=== PATIENT | male | born 1950 | race Caucasian/White ===

== ENCOUNTER 2017-03-08 19:14 | Inpatient (IN) ==
[2017-03-08] MEDS ORDERED: MORPHINE 2 MG/1 ML SYRINGE IV STA (19:52)
[2017-03-08] MEDS ORDERED: NITROGLYCERIN 2% OINT 1 INCH/GM PACK TOP STA (19:52)
[2017-03-08] MEDS ORDERED: NITROGLYCERIN 2% OINT 1 INCH/GM PACK TOP ONE (20:33)
[2017-03-08] MEDS ORDERED: MORPHINE 2 MG/1 ML SYRINGE ONE (20:33)
--- NOTE | 2017-03-08 20:39 | Emergency Department Note ---
Ameya Choi Brittany, am scribing for, and in the presence of, Jessica Magaña MD 19:59. Gómez Choi Leanne, MD, personally performed the services described in this documentation, ascribed by Sonya Hou in my presence, and it is both accurate and complete . Arrival - Arrival Chief Complaint: Chest Pain Stated Complaint: chest pain ED Nursing Triage Note: chest pain, palpitations, headache. Mode of Arrival: Stretcher Limitations: No Limitations Source: Patient, Significant other, RN Notes Reviewed Time Seen by Provider: 03/08/17 19:39 - History of Present Illness HPI Narrative: Patient is a 66 y/o white male presenting to the ED by EMS from of [place], [place] for further evaluation of Chest Pain and new onset of Atrial Fibrillation. Patient reports that upon waking from a nap around 1300 he felt heart palpitations, which confirms by stating "he came in the living room, told me to feel his chest and boy it was racing." Patient then states he was heading out to get in his truck when he noticed he had grabbed the wrong keys, upon return inside the house to get the correct set of keys his chest pain onset with a severity of 8/10. Patient then proceeded to [facility] for medical attention where he was found to be in Atrial Fibrillation. He was given a sublingual NTG and ASA as well as cardioverted. As of now he is in NSR with a rate of 65 bpm. His chest pain still persists, but now rates pain a 4/10 in severity. He has a family history significant for SD, HTN, and Diabetes Mellitus. Patient denies having any significant heart history other then HTN. Patient has had stress test and cardiac catheterization some years ago, but both were benign. His primary care provider is Dr. Anitra Baltazar of [place], [place]. No other complaint/pain. Onset (ago): hour(s) (6) Consistency: constant Severity scale (1-10): 4 Quality: aching Review of System - Review of System 12 point system: reviewed and no additional remarkable complaints except as stated - Review of System Constitutional: Absent: chills, diaphoresis, fever Eyes: Absent: vision change Head/Ears/Nose/Throat: Absent: nasal drainage, sore throat Respiratory: Absent: respiratory distress Cardiovascular: Present: chest pain, palpitations Gastrointestinal: Absent: abdominal pain, nausea, vomiting, diarrhea, constipation Genitourinary male: Absent: urgency, dysuria, frequency Musculoskeletal: Absent: arm pain, back pain, leg pain, neck pain Skin: Absent: rash Neurological: Absent: headache Psychiatric: Absent: anxiety, depression Hematological/Lymphatic: Absent: easy bleeding, easy bruising Medical,Surgical,& Family Hx - Medical History Endocrine: History of: Diabetes Mellitus (NIDDM) Musculoskeletal: History of: Back/Neck Problems - Surgical History Thoracic Surgeries: Patient denies;: Lobectomy Abdominal Surgeries: Surgical HX of: Cholecystectomy - Social History Smoking Status: Never smoker Frequency of Alcohol Use: None Type of Drug Use: None Exam Vital Signs: Vital Signs Temperature 98.9 F 03/08/17 19:16 Pulse Rate 60 03/08/17 19:26 Respiratory Rate 20 03/08/17 19:27 Blood Pressure 166/82 03/08/17 19:26 O2 Sat by Pulse Oximetry 99 03/08/17 19:26 - General General appearance: alert, in no apparent distress - Head Head exam: Present: atraumatic, normocephalic, normal inspection - Eye Eye exam: Present: normal appearance, PERRL, EOMI - ENT ENT exam: Present: normal exam, normal oropharynx - Neck Neck exam: Present: normal inspection, full ROM, trachea midline - Chest Chest inspection: Present: normal inspection, symmetric chest wall rise - Respiratory Respiratory exam: Present: normal lung sounds bilaterally. Absent: rales, rhonchi, wheezes - Cardiovascular Cardiovascular exam: Present: regular rate, normal rhythm, normal heart sounds. Absent: murmur, rubs, gallop - Abdominal Exam Abdominal exam: Present: soft, normal bowel sounds. Absent: distention, tenderness - Extremities Exam Extremities exam: Present: normal inspection - Back Exam Back exam: Present: normal inspection - Neurological Exam Neurological exam: Present: alert, oriented X3, CN II-XII intact. Absent: motor sensory deficit - Psychiatric Psychiatric exam: Present: normal affect, normal mood - Skin Skin exam: Present: warm, dry, intact, normal color Course Course Narrative: OSH records reviewed. Initial EKG afib with RVR, no prior history. Trop neg. Pt converted with one dose of diltiazem. Pt had improved chest pain but still reporting chest pain. Mother had SD at age 75. He also has risk factors of DM and HTN. Clean cath several years ago performed at [place]. Pt given nitro paste and morphine for pain. Repeat enzymes and admit to hospitalist. Results - EKG EKG results: interpreted by CARLTON MCALLISTER, sinus rhythm, normal axis, normal QRS, normal ST/T Disposition Clinical Impression: Chest pain, Atrial fibrillation with RVR, Diabetes, Hypertension Case discussed with: patient Disposition: Disch/Xfer-[facility]pshort Term Hos Condition: Guarded
[2017-03-08] MEDS ORDERED: MAGNESIUM SULF RIDER 2 GM in PREMIX 1 EACH IV ONE (22:17)
[2017-03-08] MEDS ORDERED: DILTIAZEM 50 MG/10 ML VIAL IV PRN (22:17)
[2017-03-08] MEDS ORDERED: ENOXAPARIN 100 MG/ML SYRINGE SUBCUT SCH (22:17)
[2017-03-08] MEDS ORDERED: GLUCAGON 1 MG VIAL IM PRN ×2 (22:17)
[2017-03-08] MEDS ORDERED: DEXTROSE 50% 25 GM/50 ML VIAL IV PRN ×2 (22:17)
[2017-03-08] MEDS ORDERED: ACETAMINOPHEN 325 MG TABLET PO PRN (22:17)
--- NOTE | 2017-03-08 23:29 | Hospitalist History & Physical ---
Assessment and Plan (1) Atrial fibrillation with RVR Status: Acute Assessment and plan: Rate controlled with 20 mg IV diltiazem 2 IV hydration Replace magnesium Start 60 mg oral diltiazem every 6 hours, as needed IV diltiazem for RVR Monitor on telemetry Start weight-based Lovenox for anticoagulation, discuss oral anticoagulant options with him in the morning Check TSH Current Visit: Yes (2) Hypomagnesemia Status: Acute Assessment and plan: Replace IV Current Visit: Yes (3) Dehydration Status: Acute Assessment and plan: IV fluids, likely secondary to hyperglycemia, may have triggered the atrial fibrillation Current Visit: Yes (4) Chest pain Status: Acute Assessment and plan: Chest tightness at the same time of onset of A. 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 Underwood is a 66 year old male with past history of hypertension, diabetes, GERD, psoriasis the presented with a chief complaint of chest pain. Onset sudden. Duration since noon. Quality tightness in the center of his chest. Associated with palpitations, shortness of breath, lightheadedness, flushing. On arrival to the [facility] he was found to be in atrial fibrillation with RVR. His symptoms significantly improved with diltiazem 20 mg IV 2 and nitroglycerin given at [facility]. He was transferred to [place] for higher level of care. Serial troponins and CK-MB have been negative thus far. Patient has been failing poorly for the last 2 weeks with nonspecific symptoms such as malaise but no specific infectious symptoms or sick contacts. I have reviewed the workup performed in the emergency department including lab and imaging data. I have discussed his case with emergency department providers. Allergies Allergy/AdvReac Type Severity Reaction Status Date / Time methocarbamol [From Robaxin] Allergy RASH Verified 03/08/17 20:35 Medical,Surgical,& Family Hx - Medical History Cardio: History of: Hypertension Endocrine: History of: Diabetes Mellitus (NIDDM) Gastrointestinal: History of: GERD Musculoskeletal: History of: Back/Neck Problems - Surgical History Thoracic Surgeries: Patient denies;: Lobectomy Abdominal Surgeries: Surgical HX of: Cholecystectomy Orthopedic Surgeries: Surgical HX of;: Spinal Surgery - Family History Family History: Reports;: Family Diabetes, Family Heart Disease (Mother of [place]), Family Hypertension - Social History Smoking Status: Former smoker Have you smoked in the last 12 months: No Frequency of Alcohol Use: None Type of Drug Use: None Marital Status: Lives With:: Spouse Functional capacity: independent ambulation Review of systems: - Constitutional Constitutional: Present: Fatigue absent: chills, fever(s), night sweats, weight loss - EENT Eyes: Absent: blurry vision Ears: Absent: decreased hearing, ear pain Nose, mouth and throat: Absent: nasal congestion, sore throat - Cardiovascular Cardiovascular: Present: Chest tightness, much improved, palpitations have resolved - Respiratory Respiratory: Absent: cough, dyspnea, hemoptysis - Gastrointestinal Gastrointestinal: Absent: abdominal pain, constipation, diarrhea, dysphagia, hematemesis, hematochezia, melena, nausea, vomiting - Genitourinary Genitourinary: Absent: difficulty urinating, dysuria, hematuria - Musculoskeletal Musculoskeletal: Absent: arthralgias, joint swelling, myalgias - Neurological Neurological: Present: Severe peripheral nephropathy absent: confusion, dizziness, focal weakness, headache(s), syncope - Psychiatric Psychiatric: Absent: anxiety, depression - Endocrine Endocrine: Absent: cold intolerance, heat intolerance, polydipsia, polyuria - Hematologic/Lymphatic Hematologic/Lymphatic: Absent: easy bleeding, easy bruising, lymphadenopathy Exam - Constitutional Vitals: Period Temp Pulse Resp BP Sys/Heredia Pulse Ox Last 24 Hr 71 20 146/88 99 General appearance: over weight, other (Older white male sitting up on stretcher pleasant and cooperative) Exam: - Eye Eye exam: Present: EOMI. Absent: conjunctival injection, scleral icterus Pupils: Present: JASWANT - ENT ENT exam: Present: normal external ear exam, normal oropharynx - Expanded ENT Exam Mouth exam: Present: Dry - Neck Neck exam: Present: normal inspection. Absent: lymphadenopathy, thyromegaly - Respiratory Respiratory exam: Present: clear to auscultation bilaterally. Absent: accessory muscle use, rales, rhonchi, wheezes - Cardiovascular Cardiovascular exam: Present: regular rate and rhythm. Absent: diastolic murmur , systolic murmur - Expanded Cardiovascular Exam Peripheral pulses: 2+: posterior tibialis (L), posterior tibialis (R) - GI/Abdominal GI/Abdominal exam: Present: normal bowel sounds, soft. Absent: distended, hyperactive bowel sounds, hypoactive bowel sounds, organomegaly, tenderness, rebound - Extremities Exam Extremities exam: Absent: edema - Neurological Exam Neurological exam: Present: alert, oriented X3, CN II-XII intact. Absent: motor sensory deficit - Psychiatric Psychiatric exam: Present: normal affect - Skin Skin exam: Present: warm, dry. Absent: diaphoretic, rash Results - Impressions EKGs and outside hospital reviewed: First EKG A. fib with RVR rate 131. Second EKG atrial flutter with variable 2-3:1 conduction, rate 72. - Diagnostic Findings Procedure: Chest x-ray: report reviewed by me
[2017-03-08] MEDS: oxyCODONE IR 5 MG TABLET PO PRN (23:54)
[2017-03-08] MEDS: GABAPENTIN 300 MG CAPSULE PO SCH (23:54)
[2017-03-08] MEDS: DILTIAZEM 30 MG TABLET PO SCH (23:54)
[2017-03-08] MEDS: SODIUM CHLORIDE 0.9% 1,000 ML IV SCH (23:56)
[2017-03-09] MEDS: INSULIN GLARGINE 100 UNIT/ML SUBCUT SCH ×2 (00:46→21:51)
[2017-03-09] MEDS: INSULIN LISPRO 100 UNIT/ML SUBCUT SCH ×5 (00:48→21:51)
--- NOTE | 2017-03-09 03:26 | EKG Report ---
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
[2017-03-09 04:25] LABS: Basophils % 0.4 % (0.0-0.8); Eosinophils # 0.2 10*3/uL (0.0-0.87); Eosinophils % 1.7 % (0.00-10.9); Hematocrit 39.1 VOL% (42.0-52.0); Hemoglobin 13.8 GM/DL (14.0-18.0); Immature Granulocytes % 0.1 %; Immature Granulocytes Absolute 0.01 #; Lymphocytes # 3.1 10*3/uL (1.4-4.0); Lymphocytes % 34.6 % (21.2-54.2); Mean Corpuscular HGB Conc 35.3 GM/DL (32-36); Mean Corpuscular Hemoglobin 31 PG (27-34); Mean Corpuscular Volume 87.5 FL (87-102); Mean Platelet Volume 12.2 FL (9.6-12.0); Monocytes # 0.8 10*3/uL (0.11-0.8); Monocytes % 9.2 % (1.7-12.7); Neutrophils # 4.8 10*3/uL (1.4-7.4); Platelet Count 184 T/CUMM (130-400); Red Blood Count 4.47 MC/CUMM (3.8-5.5); Red Cell Distribution Width 13.1 % (9.3-17.3)
[2017-03-09 04:52] LABS: Albumin 3.8 G/DL (3.4-5.0); Calcium 8.8 MG/DL (8.5-10.1); Magnesium 2.5 MG/DL (1.8-2.4); Potassium 3.9 MMOL/L (3.5-5.1); Thyroid Stimulating Hormone 11.9 uIU/ml (0.358-3.74); Total Protein 7.1 G/DL (6.4-8.3)
[2017-03-09 06:46] LABS: Eosinophils 4 % (0-10); Hypochromasia Slight; Lymphocytes 33 % (20-55); Platelet Estimate Normal; Segmented Neutrophils 58 % (50-85); Total Cells Counted 100
[2017-03-09] MEDS: DILTIAZEM 30 MG TABLET PO SCH (08:55)
[2017-03-09] MEDS: GABAPENTIN 300 MG CAPSULE PO SCH ×3 (08:55→21:51)
[2017-03-09] MEDS: oxyCODONE IR 5 MG TABLET PO PRN ×2 (08:56→17:03)
--- NOTE | 2017-03-09 09:05 | EKG Report ---
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
--- NOTE | 2017-03-09 09:05 | EKG Report ---
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
[2017-03-09 10:33] LABS: PT Patient Result 11.1 SECS
[2017-03-09] MEDS: ENOXAPARIN 40 MG/0.4 ML SYRINGE SUBCUT SCH (11:26)
[2017-03-09] MEDS: SODIUM CHLORIDE 0.9% 1,000 ML IV SCH (11:28)
--- NOTE | 2017-03-09 11:36 | Hospitalist Progress Note ---
Assessment and Plan - Time spent with patient Time spent with patient: Greater than 30 minutes (38 min total time with greater than 50% of time in discussion with pt, spouse, and RN regarding findings and tx plan) (1) Chest pain Status: Acute Assessment and plan: Suspect demand ischemia that was rate related. Ruled out for AMI Current Visit: Yes (2) Atrial fibrillation with RVR Status: Acute Assessment and plan: Converted to NSR/sinus juice this am. BP stable. Will continue po Cardizem in effort to prevent further RVR during paroxysms of afib. This is new dx for this pt. TSH mildly ELEVATED. Echo pending. Pt has CHADs2 score of 3. Discussed indication as well as risk/benefit of watermelon inspector anticoagulation for stroke prevention. Pt and understand and wish to proceed with anticoagulation. Starting low dose coumadin today with target INR of 2-3. 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 Absent: conjunctival injection, scleral icterus Pupils: Present: JASWANT - ENT ENT exam: Present: normal exam - Neck Neck exam: Present: normal inspection. Absent: lymphadenopathy - Respiratory Respiratory exam: Present: clear to auscultation bilaterally. Absent: rales, rhonchi, wheezes - Cardiovascular Cardiovascular exam: Present: bradycardia. Absent: gallop, rubs - GI/Abdominal GI/Abdominal exam: Present: normal bowel sounds. Absent: distended, guarding, tenderness - Extremities Exam Extremities exam: Present: normal inspection, normal capillary refill - Neurological Exam Neurological exam: Present: alert, oriented X3 - Psychiatric Psychiatric exam: Present: normal affect, normal mood - Skin Skin exam: Present: normal color, warm, dry Results - Labs CBC & BMP: 03/09/17 03:05 03/09/17 03:05
[2017-03-09] MEDS: DILTIAZEM CD 120 MG CAPSULE PO SCH (12:35)
[2017-03-09] MEDS ORDERED: WARFARIN 2.5 MG TABLET PO SCH (18:00)
--- NOTE | 2017-03-09 21:50 | ECHO Report ---
Abilio Underwood Exam Date: 03/09/2017 10:27 Referring Physician: Technologist: Paola Olvera RDCS Age: 66 Ht (in): 73 Wt (lb): 196 Gender: M Exam [facility]: [facility] Echo Indications: Chest pain, unspecified, Essential (primary) hypertension, Shortness of breath, Palpitations, Atrial fibrillation, NIDDM, Dehydration, Hypomagnesemia BP: 124 / 67 HR: 55 Rhythm: Sinus Technical Quality: Technically difficult study IMPRESSIONS Technically difficult study. Left ventricular ejection fraction is estimated at 60 %. Mildly increased left atrial size. Mildly thickened mitral valve with trace mitral regurgitation. Mild aortic valve sclerosis without stenosis. Trace aortic valve regurgitation. Mild tricuspid valve regurgitation. MEASUREMENTS (Male / Female) Normal Values 2D ECHO LV Diastolic Diameter PLAX 5.2 cm 4.2 - 5.9 / 3.9 - 5.3 cm LV Systolic Diameter PLAX 3.3 cm LV Fractional Shortening PLAX 37.3 % IVS Diastolic Thickness 1.0 cm 0.6 - 1.0 / 0.6 - 0.9 cm LVPW Diastolic Thickness 1.0 cm 0.6 - 1.0 / 0.6 - 0.9 cm RV Internal Dim ED PLAX 3.1 cm Aortic Root Diameter 3.4 cm LA Systolic Diameter LX 5.2 cm 3.0 - 4.0 / 2.7 - 3.8 cm DOPPLER TR Peak Velocity 350.0 cm/s TR Peak Gradient 49.0 mmHg FINDINGS Left Ventricle Normal left ventricular cavity size. Normal left ventricular wall thickness. Left ventricular ejection fraction is estimated at 60 %. Right Ventricle The right ventricle is normal in size and function. Right Atrium The right atrium isgrossly normal. Left Atrium Mildly increased left atrial size. Mitral Valve Mildly thickened mitral valve with trace mitral regurgitation. Aortic Valve Mild aortic valve sclerosis without stenosis. Trace aortic valve regurgitation. Tricuspid Valve Morphologically normal tricuspid valve. Mild tricuspid valve regurgitation. Tricuspid regurgitation velocities suggest a PAP of 59 mmHg. Pulmonic Valve Morphologically normal pulmonic valve. Trace pulmonary valve regurgitation. Pericardium Normal pericardium without effusion. Aorta Normal ascending aorta dimension. Dom Alvarez (Electronically Signed) Final Date: 09 Mar 2017 21:49
[2017-03-10] MEDS: oxyCODONE IR 5 MG TABLET PO PRN ×2 (01:57→10:14)
[2017-03-10 05:24] LABS: PT Patient Result 10.9 SECS
[2017-03-10] MEDS: GABAPENTIN 300 MG CAPSULE PO SCH (08:33)
[2017-03-10] MEDS: DILTIAZEM CD 120 MG CAPSULE PO SCH (08:33)
[2017-03-10] MEDS: INSULIN LISPRO 100 UNIT/ML SUBCUT SCH ×2 (08:33→12:57)
[2017-03-10] MEDS: ENOXAPARIN 40 MG/0.4 ML SYRINGE SUBCUT SCH (10:00)
--- NOTE | 2017-03-10 10:40 | Discharge Summary ---
Hospital Course - Hospital Course Hospital Course: 66-year-old male with a history of peripheral neuropathy and diabetes presents to the emergency room with complaints of chest pain. Patient was noted to be in A. fib with rapid ventricular response but quickly converted to sinus rhythm. He was noted to be mildly dehydrated due to hyperglycemia. His blood sugars are not well controlled and he is currently on glipizide or Metformin. His hemoglobin A1c was 9.8 but I doubt he will be compliant with insulin. He was started on gabapentin in addition to his narcotics for his peripheral neuropathy. He needs to follow-up with his primary care doctor and have a in-depth conversation about insulin. His blood pressure and heart rate are well controlled on diltiazem alone. We have converted him from Coumadin to Eliquis. Coumadin is hard to regulate especially with green leafy vegetables. We will give him a 30 day coupon for Eliquis. The indicated that patient has not been out of bed since he was admitted a day ago and is not sure he can walk. He has severe peripheral neuropathy but she has denied my offer for home health. Patient will be discharged home to follow-up with his primary care doctor and with mail clerk in 1-2 weeks. - Time spent with patient Time with patient DS: Less than 30 minutes Specialty Discharge - Follow Up or Referrals Discharge Plan - Discharge Data Disposition: Disch To Home/Self Care Condition at Discharge: Stable Discharge Diet: diabetic diet Activity: resume usual activities as tolerated Hygiene: no restrictions Weight Bearing at Discharge: full weight bearing - Discharge Medications New Gabapentin Cap/Tab [Neurontin Cap/Tab] 300 mg PO TID #90 capsule Apixaban [Eliquis] 5 mg PO BID #60 tablet Diltiazem Cd Cap [Cardizem CD] 120 mg PO DAILY #30 capsule Continue Oxycodone HCl [Oxycontin] 80 mg PO TID Metformin HCl 1,000 mg PO TID #90 tablet glipiZIDE XL [Glucotrol Xl] 10 mg PO BID #120 tablet raNITIdine HCl [Ranitidine HCl] 150 mg PO BID HYDROcodone/ACETAMIN 10-325 [[place] 10-325] 1 tablet PO BID Discontinued Pindolol [Pindolol] 5 mg PO BID - Follow Up or Referral Follow Up: Alon Castro MD [Physician] - [address] Jessi [Other] - 2 Weeks - Forms/Instructions Instructions: Atrial Fibrillation (DC) Exam - Constitutional Vitals: Period Temp Pulse Resp BP Sys/Heredia Pulse Ox Last 24 Hr 96.0 F-98.4 F 53-68 16-20 127-151/61-81 94-99 General appearance: normal weight, no acute distress - Respiratory Respiratory exam: Present: clear to auscultation bilaterally. Absent: rales, rhonchi, wheezes - Cardiovascular Cardiovascular exam: Present: regular rate and rhythm. Absent: systolic murmur - GI/Abdominal GI/Abdominal exam: Present: normal bowel sounds, soft. Absent: tenderness - Extremities Exam Extremities exam: Present: normal inspection, normal capillary refill Discharge Results Labs on day of discharge: Labs from last 24 hours 03/10/17 03/10/17 03/09/17 07:25 04:40 23:44 INR 1.0 PT Patient/Control Mix 10.9 POC Glucose 270 H 269 H 03/09/17 03/09/17 03/09/17 20:35 15:39 11:02 INR PT Patient/Control Mix POC Glucose 288 H 255 H 308 H DS: Provider Date of admission: 03/08/17 20:58 Primary care physician: . No PCP Attending physician on admission: Sav Morel MD Discharging clinician: Emperatriz Boyce MD
[2017-03-10] MEDS ORDERED: metFORMIN 500 MG TABLET PO SCH (10:45)
[2017-03-10] MEDS ORDERED: APIXABAN 5 MG TABLET PO SCH (11:00)
[2017-03-10] MEDS ORDERED: FAMOTIDINE 20 MG TABLET PO SCH (11:00)
[2017-03-10 12:36] VITALS: BP 124/73
[2017-03-10] MEDS ORDERED: oxyCODONE ER 40 MG TABLET PO SCH (15:00)
== END 2017-03-10 13:18 | disposition home or self-care (01) | DRG 310 ==
LOC: EDUNIT# → EDBD → N.ED 19:14 → N.EDINP 20:58 → SUATTDRO 20:58 → N.TELEN 21:09
PROVIDERS: ADMIT Student in an Organized Health Care Education/Training Program; ATTEND Internal Medicine

== ENCOUNTER 2017-05-31 10:48 | Inpatient (IN) ==
[2017-05-31] MEDS ORDERED: NITROGLYCERIN SL 0.4 MG TABLET SL PRN (12:05)
[2017-05-31 12:33] LABS: Basophils % 0.6 % (0.0-0.8); Eosinophils # 0.2 10*3/uL (0.0-0.87); Eosinophils % 2.9 % (0.00-10.9); Hematocrit 37.9 VOL% (42.0-52.0); Hemoglobin 13.4 GM/DL (14.0-18.0); Immature Granulocytes % 0.1 %; Immature Granulocytes Absolute 0.01 #; Lymphocytes # 1.9 10*3/uL (1.4-4.0); Lymphocytes % 28.1 % (21.2-54.2); Mean Corpuscular HGB Conc 35.4 GM/DL (32-36); Mean Corpuscular Hemoglobin 32 PG (27-34); Mean Platelet Volume 11.3 FL (9.6-12.0); Monocytes # 0.5 10*3/uL (0.11-0.8); Monocytes % 7.8 % (1.7-12.7); Neutrophils # 4.1 10*3/uL (1.4-7.4); Neutrophils % 60.5 % (38.7-73.9); Platelet Count 175 T/CUMM (130-400); Red Blood Count 4.26 MC/CUMM (3.8-5.5); Red Cell Distribution Width 13.1 % (9.3-17.3); White Blood Count 6.8 T/CUMM (4-12)
[2017-05-31 12:51] LABS: Calcium 9.5 MG/DL (8.5-10.1); Osmolality,Calculated 278.7 MOS/KG (273-304); Potassium 4.4 MMOL/L (3.5-5.1)
--- NOTE | 2017-05-31 12:57 | XRay Report ---
XR chest 1V portable Indication: Chest pain. Comparison: Chest x-ray 03/08/2017 Technique: Portable AP chest was performed. Findings: The heart is borderline in size, stable. Pulmonary vasculature demonstrates no specific abnormality. Hilar structures demonstrate fairly symmetric appearance. The lungs appear clear. Elevation of the right hemidiaphragm is stable. Bones and soft tissues demonstrate no evidence of acute pathology. Impression: 1. No evidence of acute pathology. 05/31/2017 12:54 PM PROCEDURE INTERPRETED AT [facility] DEPARTMENT OF RADIOLOGY Final Report Signed by: Dr. Alexandre Godinez
[2017-05-31] MEDS ORDERED: ENOXAPARIN 80 MG/0.8 ML SYRINGE SUBCUT STA (13:25)
[2017-05-31] MEDS ORDERED: ENOXAPARIN 100 MG/ML SYRINGE SUBCUT ONE (13:28)
--- NOTE | 2017-05-31 13:29 | Emergency Department Note ---
Karel Choi Rolonda, am scribing for, and in the presence of, Ernie Ramon MD 12:06. Tristen Choi Doug C, MD, personally performed the services described in this documentation, ascribed by Ivana Vinson in my presence, and it is both accurate and complete [id number] . 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 Patient states he went to the emergency room at [place] and was found to be in atrial fibrillation but his right was controlled he was allowed to go home. Patient states she had chest pain prior to his arrival there and took 2 nitroglycerin which relieved his pain after approximately 30 minutes of discomfort. He is now having some slight substernal discomfort but states he no longer feels any palpitations. He denies any nausea, vomiting, shortness of breath or neck, shoulder discomfort. He states he did have diaphoresis this morning. Patient states he had a similar episode in the past and he converted back to normal sinus rhythm with medications only. Onset (ago): hour(s) Consistency: constant Severity: moderate Severity scale (1-10): 3 Quality: other (pressure) Allergies/Adverse Reactions: Allergies Allergy/AdvReac Type Severity Reaction Status Date / Time carisoprodol Allergy RASH Verified 04/21/17 06:23 [From Soma Compound] ketorolac [From Toradol] Allergy ITCHING Verified 04/21/17 06:23 methocarbamol [From Robaxin] Allergy RASH Verified 03/08/17 20:35 piroxicam [From Feldene] Allergy RASH Verified 04/21/17 06:23 Home Medications: Home Medications Medication Instructions Recorded Confirmed Type Gabapentin Cap/Tab [Neurontin 300 mg PO TID #90 capsule 03/10/17 05/31/17 Rx Cap/Tab] HYDROcodone/ACETAMIN 10-325 [[place] 1 tablet PO BID PRN 03/10/17 05/31/17 History 10-325] Oxycodone HCl [Oxycontin] 80 mg PO TID PRN 03/10/17 05/31/17 History glipiZIDE XL [Glucotrol Xl] 10 mg PO BID #120 tablet 03/10/17 05/31/17 Rx raNITIdine HCl [Ranitidine HCl] 150 mg PO BID PRN 03/10/17 05/31/17 History Levothyroxine Tab [Synthroid Tab] 50 mcg PO QPM 04/17/17 05/31/17 History Valsartan 80 mg PO BID 04/21/17 05/31/17 History Aspirin EC Tab 81 mg PO QAM 05/31/17 05/31/17 History Clopidogrel [Plavix] 75 mg PO QAM 05/31/17 05/31/17 History Metformin HCl 1,000 mg PO BID 05/31/17 05/31/17 History Metoprolol Succinate Xl [Toprol Xl] 25 mg PO QAM 05/31/17 05/31/17 History Review of System - Review of System 12 point system: reviewed and no additional remarkable complaints except as stated - Review of System Constitutional: Present: diaphoresis. Absent: chills, fever Eyes: Absent: discharge, redness Head/Ears/Nose/Throat: Absent: earache, epistaxis Respiratory: Absent: cough, respiratory distress Cardiovascular: Present: chest pain, palpitations (A-fib). Absent: dyspnea on exertion Gastrointestinal: Absent: abdominal pain, nausea, vomiting Genitourinary male: Absent: dysuria Musculoskeletal: Absent: arm pain, back pain, leg pain, neck pain Neurological: Present: vertigo. Absent: headache, weakness, numbness Psychiatric: Absent: anxiety Endocrine: Absent: cold intolerance Hematological/Lymphatic: Absent: easy bleeding Allergic/Immunologic: Absent: facial swelling Medical,Surgical,& Family Hx - Medical History Cardio: History of: CAD, Hypertension Neurology: No history of: Seizures Endocrine: History of: Diabetes Mellitus (IDDM), Dyslipidemia, Thyroid Disorder Respiratory: History of: COPD Gastrointestinal: History of: GERD - Surgical History Cardiac Surgeries: Sugical HX of: Cardiac Catheterization Neurologic Surgeries: Patient denies: Neurologic Surgery Abdominal Surgeries: Surgical HX of: Abdominal Surgery Reproductive Surgeries: Patient denies;: Genitourinary Surgery Orthopedic Surgeries: Surgical HX of;: Spinal Surgery - Family History Family History: Reports;: Family Diabetes, Family Heart Disease (Mother of [place]), Family Hypertension - Social History Smoking Status: Smoker, status unknown Frequency of Alcohol Use: None Type of Drug Use: None Exam Vital Signs: Vital Signs Temperature 97.0 F L 05/31/17 12:11 Pulse Rate 54 L 05/31/17 13:15 Respiratory Rate 14 05/31/17 13:15 Blood Pressure 139/77 05/31/17 13:15 O2 Sat by Pulse Oximetry 99 05/31/17 12:45 - General General appearance: alert, in no apparent distress - Head Head exam: Present: atraumatic, normocephalic - Eye Eye exam: Present: PERRL, EOMI - ENT ENT exam: Present: mucous membranes moist. Absent: mucous membranes dry - Neck Neck exam: Present: full ROM. Absent: tenderness - Chest Chest inspection: Present: symmetric chest wall rise. Absent: tenderness - Respiratory Respiratory exam: Present: normal lung sounds bilaterally. Absent: wheezes - Cardiovascular Cardiovascular exam: Present: normal rhythm, bradycardia, normal heart sounds - Abdominal Exam Abdominal exam: Present: soft, normal bowel sounds. Absent: tenderness - Extremities Exam Extremities exam: Present: full ROM. Absent: tenderness - Back Exam Back exam: Present: full ROM. Absent: tenderness - Neurological Exam Neurological exam: Present: alert, oriented X3, CN II-XII intact - Psychiatric Psychiatric exam: Present: normal affect, normal mood - Skin Skin exam: Present: warm, dry, intact, normal color. Absent: rash Course Course Narrative: Patient's clinical presentation, laboratory and radiograph findings were discussed with Dr. Isabela Ibarra. Patient be admitted to telemetry and cardiac isoenzymes will be continued. Results - Labs CBC & BMP: 05/31/17 12:13 05/31/17 12:13 Lab Results: I have reviewed the patients labs Labs: Laboratory Tests 05/31/17 05/31/17 05/31/17 12:13 12:13 12:13 WBC 6.8 RBC 4.26 Hgb 13.4 L Hct 37.9 L Plt Count 175 D-Dimer, Quantitative <= 0.5 Sodium 138 Potassium 4.4 Chloride 105 Carbon Dioxide 28 BUN 16 GFR Calculation 96 Glucose 147 H Laboratory Tests 05/31/17 12:13 Troponin I 0.061 H - EKG EKG results: interpreted by ERMD, sinus rhythm (79 bpm), no acute changes - Diagnostic Findings Procedure: Chest x-ray: report reviewed by me (No evidence of acute pathology.) Disposition Clinical Impression: Chest pain, History of atrial fibrillation Case discussed with: patient, patient's family Disposition: Still a Patient Condition: Stable Time of Disposition: 13:29
[2017-05-31] MEDS ORDERED: ZALEPLON 5 MG CAPSULE PO PRN (13:30)
[2017-05-31] MEDS ORDERED: ONDANSETRON 4 MG/2 ML VIAL IV PRN (13:30)
[2017-05-31] MEDS ORDERED: MAGNESIUM SULF RIDER 4 GM in PREMIX 1 EACH IV PRN (13:30)
[2017-05-31] MEDS ORDERED: DEXTROSE 5% NACL 0.45% 1,000 ML IV SCH (13:30)
[2017-05-31] MEDS ORDERED: MORPHINE 2 MG/1 ML SYRINGE IV PRN (13:30)
[2017-05-31] MEDS ORDERED: MAGNESIUM SULF RIDER 2 GM in PREMIX 1 EACH IV PRN (13:30)
[2017-05-31] MEDS ORDERED: ACETAMINOPHEN 325 MG TABLET PO PRN (13:30)
[2017-05-31] MEDS ORDERED: POTASSIUM CHLORIDE 20 MEQ/15 ML UDCUP PER TUBE PRN (13:30)
[2017-05-31] MEDS ORDERED: FAMOTIDINE 20 MG TABLET PO PRN (13:35)
[2017-05-31] MEDS ORDERED: ENOXAPARIN 100 MG/ML SYRINGE SUBCUT SCH (14:00)
[2017-05-31] MEDS: GABAPENTIN 300 MG CAPSULE PO SCH ×2 (14:37→21:50)
--- NOTE | 2017-05-31 15:18 | EKG Report ---
Stationary ECG Study 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
[2017-05-31] MEDS: oxyCODONE ER 40 MG TABLET PO PRN (17:21)
--- NOTE | 2017-05-31 18:24 | Cardiology History & Physical ---
Assessment and Plan - Time spent with patient Time spent with patient: Greater than 30 minutes (Film review, documentation, discussion with ED, examination and orders) (1) Coronary artery disease Status: Chronic Current Visit: Yes Qualifiers: Coronary Disease-Associated Artery/Lesion type: [place] artery [place] vs. transplanted heart: [place] heart Associated angina: with unstable angina Qualified Code(s): I25.110 - Atherosclerotic heart disease of [place] coronary artery with unstable angina pectoris (2) Dyslipidemia Status: Chronic Current Visit: Yes (3) Peripheral neuropathy Status: Chronic Current Visit: Yes Qualifiers: Peripheral neuropathy type: polyneuropathy associated with underlying disease Qualified Code(s): G63 - Polyneuropathy in diseases classified elsewhere (4) Bradycardia Status: Chronic Current Visit: Yes (5) Chest pain Status: Acute Current Visit: No Qualifiers: Ischemic chest pain type: other angina pectoris type (6) Diabetes Status: Chronic Current Visit: No Qualifiers: Diabetes mellitus type: type 2 Diabetes mellitus complication status: with neurologic complications Diabetes mellitus complication detail: with polyneuropathy Diabetes mellitus lobsterman insulin use: without lobsterman use Qualified Code(s): E11.42 - Type 2 diabetes mellitus with diabetic polyneuropathy (7) Hypertension Status: Chronic Current Visit: No (8) Paroxysmal atrial fibrillation with rapid ventricular response Status: Acute Current Visit: Yes History of Present Illness Chief complaint: Chest pain History of present illness: Mr. Underwood is a 66 year old male with known coronary disease underwent percutaneous coronary mention of the right coronary artery with stents [address] Noe Reynolds the patient's primary internet marketing specialist on April 19. He also had POB a of the distal LAD is a very small vessel. The patient was awakened this morning around 730 with tachypalpitations and chest discomfort. He went to the [facility] emergency room was evaluated there and given an aspirin and released. Rather than go home the patient felt that he was dissatisfied with his care and thought that he needed more and he came to our emergency room. He was evaluated there by Dr. Ernie Ramon and I discussed with Dr. Ramon over the phone admitted the patient service and I saw him in the evening of 2016. He is pain-free at this time. He seems to have discomfort only with his tachypalpitations. The patient has a history of paroxysmal atrial fibrillation and was on Eliquis but after his PCI his Eliquis was discontinued and he was started on Brilinta. He was having problems that Dr. Castro felt related to Brilinta and his Brilinta was discontinued and he was started on aspirin and Plavix. He denies any exertional chest pain signs or symptoms of heart failure including lower extremity edema or orthopnea. He is diabetic and has blood sugars that are apparently well controlled by his history states are in the " low 100s." His blood pressure and heart rate was "going crazy" this morning and his machine would not read it when he went to the emergency room his states that she could see his heart rate "lifting his shirt." Upon arrival to our emergency room he was in sinus bradycardia and had no dynamic ST segment changes he has a mildly elevated troponin and it is trending down with the second number. Patient is admitted for further evaluation. I reviewed his films from April 2017 his ejection fraction was 60%. Angiography was also reviewed. I cannot find a recent echocardiogram to assess LA size however he is having intermittent atrial fibrillation I think warrants an attempt to restore and maintain sinus rhythm. Although he has bradycardia I will discontinue his beta-sudhir and start on Betapace if he does not tolerate this will consider other options. Home Medications Medication Instructions Recorded Confirmed Type Gabapentin Cap/Tab [Neurontin 300 mg PO TID #90 capsule 03/10/17 05/31/17 Rx Cap/Tab] HYDROcodone/ACETAMIN 10-325 [[place] 1 tablet PO BID PRN 03/10/17 05/31/17 History 10-325] Oxycodone HCl [Oxycontin] 80 mg PO TID PRN 03/10/17 05/31/17 History glipiZIDE XL [Glucotrol Xl] 10 mg PO BID #120 tablet 03/10/17 05/31/17 Rx raNITIdine HCl [Ranitidine HCl] 150 mg PO BID PRN 03/10/17 05/31/17 History Levothyroxine Tab [Synthroid Tab] 50 mcg PO QPM 04/17/17 05/31/17 History Valsartan 80 mg PO BID 04/21/17 05/31/17 History Aspirin EC Tab 81 mg PO QAM 05/31/17 05/31/17 History Clopidogrel [Plavix] 75 mg PO QAM 07/29/17 07/29/17 History Metformin HCl 1,000 mg PO BID 05/31/17 05/31/17 History Metoprolol Succinate Xl [Toprol Xl] 25 mg PO QAM 05/31/17 05/31/17 History Allergies Allergy/AdvReac Type Severity Reaction Status Date / Time carisoprodol Allergy RASH Verified 04/21/17 06:23 [From Soma Compound] ketorolac [From Toradol] Allergy ITCHING Verified 04/21/17 06:23 methocarbamol [From Robaxin] Allergy RASH Verified 03/08/17 20:35 piroxicam [From Feldene] Allergy RASH Verified 04/21/17 06:23 - Constitutional Constitutional: Present: daytime sleepiness, stops breathing during sleep, weakness, other (He has been trying to walk a half a mile 4 days a week at recommendations of Dr. Castro). Absent: anorexia, chills, excessive sweating - EENT Eyes: Present: blurry vision Nose, mouth and throat: Present: headache(s), sinus pressure. Absent: epistaxis , lip swelling, nasal congestion, tongue swelling - Cardiovascular Cardiovascular: Present: chest pain at rest, palpitations. Absent: chest pain with activity, dyspnea, dyspnea on exertion, edema, orthopnea - Respiratory Respiratory: Present: snoring. Absent: dyspnea, hemoptysis, dyspnea on exertion - Gastrointestinal Gastrointestinal: Absent: bloating, constipation, cramping, dyspepsia, dysphagia , melena - Genitourinary Genitourinary: Absent: difficulty urinating, hematuria, nocturia - Musculoskeletal Musculoskeletal: Present: arthralgias, back pain, muscle cramps, muscle weakness , myalgias, other (Leg pain). Absent: joint swelling - Neurological Neurological: Present: abnormal gait (Due to peripheral neuropathy), focal weakness (Lower extremities), numbness (Lower extremity), paresthesias (Lower extremity). Absent: confusion, convulsions - Psychiatric Psychiatric: Present: depression. Absent: anxiety - Endocrine Endocrine: Present: heat intolerance. Absent: cold intolerance - Hematologic/Lymphatic Hematologic/Lymphatic: Present: easy bruising. Absent: easy bleeding Medical,Surgical,& Family Hx - Medical History Cardio: History of: Cardiac Dysrhythmia (Paroxysmal atrial fibrillation), CAD ( PCI 617 as mentioned above), Hypertension Neurology: No history of: Seizures HEENT: History of: Dental Problems Endocrine: History of: Diabetes Mellitus (IDDM) (With coronary artery disease and peripheral neuropathy), Dyslipidemia, Thyroid Disorder Rheumatology: History of;: Fibromyalgia Respiratory: History of: COPD Gastrointestinal: History of: GERD Musculoskeletal: History of: Back/Neck Problems (back surgery) - Surgical History Cardiac Surgeries: Sugical HX of: Cardiac Catheterization Neurologic Surgeries: Patient denies: Neurologic Surgery Abdominal Surgeries: Surgical HX of: Abdominal Surgery (gall bladder) Reproductive Surgeries: Patient denies;: Genitourinary Surgery Orthopedic Surgeries: Surgical HX of;: Spinal Surgery - Family History Family History: Reports;: Family Diabetes, Family Heart Disease (Mother of [place]), Family Hypertension - Social History Smoking Status: Smoker, status unknown Frequency of Alcohol Use: None Type of Drug Use: None Marital Status: Lives With:: Spouse Functional capacity: independent ambulation Cardiology Physical Exam - Constitutional Vitals: Vital Signs Temp Pulse Resp BP Pulse Ox 98.2 F 50 L 18 133/81 96 05/31/17 16:00 05/31/17 16:00 05/31/17 17:21 05/31/17 16:00 05/31/17 13:45 Intake and Output 05/31/17 05/31/17 05/31/17 07:59 15:59 23:59 Intake Total 120 / 120 Balance 120 / 120 Intake: Oral 120 / 120 Other: Voiding Method Toilet # Voids 2 Weight 90.855 kg Patient Weight 05/31/17 23:59 Weight 90.855 kg General appearance: normal weight - Head Head exam: Present: normal inspection - Eye Eye exam: Present: EOMI Pupils: Present: JASWANT - ENT ENT exam: Present: other (Poor dentition) - Neck Neck exam: Present: normal inspection - Respiratory Respiratory exam: Present: clear to auscultation bilaterally - Cardiovascular Cardiovascular exam: Present: regular rate and rhythm (Soft murmur of aortic sclerosis PMI within normal limits) - GI/Abdominal GI/Abdominal exam: Present: normal bowel sounds - Extremities Exam Extremities exam: Present: normal inspection (Good pulses) - Neurological Exam Neurological exam: Present: alert, oriented X3 - Psychiatric Psychiatric exam: Present: depressed - Skin Skin exam: Present: normal color, warm Result/EKG - Labs CBC & BMP: 05/31/17 12:13 05/31/17 12:13 Labs: Laboratory Results - last 24 hr 05/31/17 05/31/17 05/31/17 12:13 12:13 12:13 WBC RBC Hgb Hct MCV MCH MCHC RDW Plt Count MPV Neut % (Auto) Lymph % (Auto) [place] % (Auto) Eos % (Auto) Baso % (Auto) Neut # (Auto) Lymph # (Auto) [place] # (Auto) Eos # (Auto) Baso # (Auto) Immature Gran % Nucleated RBC % Immature Gran # Nucleated RBCs # Immature Plt Fraction D-Dimer, Quantitative <= 0.5 Sodium 138 Potassium 4.4 Chloride 105 Carbon Dioxide 28 Anion Gap 9.4 BUN 16 Creatinine 1.00 GFR Calculation 96 BUN/Creatinine Ratio 16.00 Glucose 147 H POC Glucose Calculated Osmolality 278.7 Calcium 9.5 Troponin I 0.061 H B-Natriuretic Peptide 05/31/17 05/31/17 05/31/17 12:13 12:13 14:55 WBC 6.8 RBC 4.26 Hgb 13.4 L Hct 37.9 L MCV 89.0 MCH 32 MCHC 35.4 RDW 13.1 Plt Count 175 MPV 11.3 Neut % (Auto) 60.5 Lymph % (Auto) 28.1 [place] % (Auto) 7.8 Eos % (Auto) 2.9 Baso % (Auto) 0.6 Neut # (Auto) 4.1 Lymph # (Auto) 1.9 [place] # (Auto) 0.5 Eos # (Auto) 0.2 Baso # (Auto) 0.0 Immature Gran % 0.1 Nucleated RBC % 0.0 Immature Gran # 0.01 Nucleated RBCs # 0.00 Immature Plt Fraction 0.0 D-Dimer, Quantitative Sodium Potassium Chloride Carbon Dioxide Anion Gap BUN Creatinine GFR Calculation BUN/Creatinine Ratio Glucose POC Glucose Calculated Osmolality Calcium Troponin I 0.053 H B-Natriuretic Peptide 152 H 05/31/17 05/31/17 16:34 16:47 WBC RBC Hgb Hct MCV MCH MCHC RDW Plt Count MPV Neut % (Auto) Lymph % (Auto) [place] % (Auto) Eos % (Auto) Baso % (Auto) Neut # (Auto) Lymph # (Auto) [place] # (Auto) Eos # (Auto) Baso # (Auto) Immature Gran % Nucleated RBC % Immature Gran # Nucleated RBCs # Immature Plt Fraction D-Dimer, Quantitative Sodium Potassium Chloride Carbon Dioxide Anion Gap BUN Creatinine GFR Calculation BUN/Creatinine Ratio Glucose POC Glucose 135 H Calculated Osmolality Calcium Troponin I 0.047 H B-Natriuretic Peptide - Impressions Impressions: Reviewed heart cath from April 2017 - EKG EKG results: interpreted by me (Bradycardia no acute ST changes)
[2017-05-31] MEDS ORDERED: GLUCAGON 1 MG VIAL IM PRN (18:29)
[2017-05-31] MEDS ORDERED: DEXTROSE 50% 25 GM/50 ML SYRINGE IV PRN (18:29)
[2017-05-31] MEDS ORDERED: DOCUSATE SODIUM 100 MG CAPSULE PO PRN (18:29)
[2017-05-31] MEDS: metFORMIN 500 MG TABLET PO SCH (21:49)
[2017-05-31] MEDS: SOTALOL 80 MG TABLET PO SCH (21:49)
[2017-05-31] MEDS: APIXABAN 2.5 MG TABLET PO SCH (21:50)
[2017-05-31] MEDS: VALSARTAN 80 MG TABLET PO SCH (21:50)
[2017-05-31] MEDS: LEVOTHYROXINE 50 MCG TABLET PO SCH (21:50)
[2017-05-31] MEDS: INSULIN REGULAR 100 UNIT/ML SUBCUT SCH (22:12)
[2017-06-01] MEDS: oxyCODONE ER 40 MG TABLET PO PRN ×3 (04:38→21:26)
--- NOTE | 2017-06-01 04:40 | Cardiology Progress Note ---
Assessment and Plan (1) Coronary artery disease Status: Chronic Current Visit: Yes Qualifiers: Coronary Disease-Associated Artery/Lesion type: [place] artery [place] vs. transplanted heart: [place] heart Associated angina: angina presence unspecified Qualified Code(s): I25.10 - Atherosclerotic heart disease of [place] coronary artery without angina pectoris (2) Dyslipidemia Status: Chronic Current Visit: Yes (3) Peripheral neuropathy Status: Chronic Current Visit: Yes Qualifiers: Peripheral neuropathy type: polyneuropathy associated with underlying disease Qualified Code(s): G63 - Polyneuropathy in diseases classified elsewhere (4) Bradycardia Status: Chronic Current Visit: Yes (5) Chest pain Status: Resolved Assessment and plan: I think due to A. fib with RVR and stress Current Visit: No Qualifiers: Ischemic chest pain type: other angina pectoris type (6) Diabetes Status: Chronic Current Visit: No Qualifiers: Diabetes mellitus type: type 2 Diabetes mellitus complication status: with neurologic complications Diabetes mellitus complication detail: with polyneuropathy Diabetes mellitus assisted insulin use: without terminologist use Qualified Code(s): E11.42 - Type 2 diabetes mellitus with diabetic polyneuropathy (7) Hypertension Status: Chronic Current Visit: No (8) Paroxysmal atrial fibrillation with rapid ventricular response Status: Acute Assessment and plan: As per HPI continue sotalol with serial EKG monitoring Current Visit: Yes Cardiology - PN: Subj Interval history: The patient has experienced no additional chest discomfort. He is remained in sinus rhythm. His labs have shown a mild trend down and normalization of his very mildly elevated troponin. He has remained in sinus bradycardia. He has had 1 dose now sotalol. His EKG this morning is pending his EKG yesterday showed sinus bradycardia with a normal QT interval. This was after only one dose of sotalol. I discussed with the patient and his plans to stay here for total of 5 doses of sotalol at a minimum if he tolerates if he does not tolerate continue anticoagulation resume his metoprolol he was on prior to admission. I do not think at this time additional intervention or evaluation invasively is warranted. If he has more chest discomfort certainly would be a consideration. Exam (Progress Note) - Constitutional Vitals: Period Temp Pulse Resp BP Sys/Heredia Pulse Ox Last 24 Hr 97.0 F-98.2 F 50-65 12-20 118-145/68-84 96-100 General appearance: normal weight - Head Head exam: Present: normal inspection - Eye Eye exam: Present: EOMI Pupils: Present: JASWANT - ENT ENT exam: Present: normal exam - Respiratory Respiratory exam: Present: clear to auscultation bilaterally - Cardiovascular Cardiovascular exam: Present: bradycardia - GI/Abdominal GI/Abdominal exam: Present: normal bowel sounds - Extremities Exam Extremities exam: Present: normal inspection, normal capillary refill - Back Exam Back exam: Present: normal inspection - Neurological Exam Neurological exam: Present: alert, oriented X3, normal gait - Psychiatric Psychiatric exam: Present: normal affect, normal mood - Skin Skin exam: Present: normal color, warm Result/EKG - Labs CBC & BMP: 05/31/17 12:13 05/31/17 12:13 Labs: Laboratory Results - last 24 hr 05/31/17 05/31/17 05/31/17 12:13 12:13 12:13 WBC RBC Hgb Hct MCV MCH MCHC RDW Plt Count MPV Neut % (Auto) Lymph % (Auto) [place] % (Auto) Eos % (Auto) Baso % (Auto) Neut # (Auto) Lymph # (Auto) [place] # (Auto) Eos # (Auto) Baso # (Auto) Immature Gran % Nucleated RBC % Immature Gran # Nucleated RBCs # Immature Plt Fraction D-Dimer, Quantitative <= 0.5 Sodium 138 Potassium 4.4 Chloride 105 Carbon Dioxide 28 Anion Gap 9.4 BUN 16 Creatinine 1.00 GFR Calculation 96 BUN/Creatinine Ratio 16.00 Glucose 147 H POC Glucose Calculated Osmolality 278.7 Calcium 9.5 Troponin I 0.061 H B-Natriuretic Peptide 05/31/17 05/31/17 05/31/17 12:13 12:13 14:55 WBC 6.8 RBC 4.26 Hgb 13.4 L Hct 37.9 L MCV 89.0 MCH 32 MCHC 35.4 RDW 13.1 Plt Count 175 MPV 11.3 Neut % (Auto) 60.5 Lymph % (Auto) 28.1 [place] % (Auto) 7.8 Eos % (Auto) 2.9 Baso % (Auto) 0.6 Neut # (Auto) 4.1 Lymph # (Auto) 1.9 [place] # (Auto) 0.5 Eos # (Auto) 0.2 Baso # (Auto) 0.0 Immature Gran % 0.1 Nucleated RBC % 0.0 Immature Gran # 0.01 Nucleated RBCs # 0.00 Immature Plt Fraction 0.0 D-Dimer, Quantitative Sodium Potassium Chloride Carbon Dioxide Anion Gap BUN Creatinine GFR Calculation BUN/Creatinine Ratio Glucose POC Glucose Calculated Osmolality Calcium Troponin I 0.053 H B-Natriuretic Peptide 152 H 05/31/17 05/31/17 05/31/17 16:34 16:47 20:12 WBC RBC Hgb Hct MCV MCH MCHC RDW Plt Count MPV Neut % (Auto) Lymph % (Auto) [place] % (Auto) Eos % (Auto) Baso % (Auto) Neut # (Auto) Lymph # (Auto) [place] # (Auto) Eos # (Auto) Baso # (Auto) Immature Gran % Nucleated RBC % Immature Gran # Nucleated RBCs # Immature Plt Fraction D-Dimer, Quantitative Sodium Potassium Chloride Carbon Dioxide Anion Gap BUN Creatinine GFR Calculation BUN/Creatinine Ratio Glucose POC Glucose 135 H Calculated Osmolality Calcium Troponin I 0.047 H 0.031 B-Natriuretic Peptide 05/31/17 21:48 WBC RBC Hgb Hct MCV MCH MCHC RDW Plt Count MPV Neut % (Auto) Lymph % (Auto) [place] % (Auto) Eos % (Auto) Baso % (Auto) Neut # (Auto) Lymph # (Auto) [place] # (Auto) Eos # (Auto) Baso # (Auto) Immature Gran % Nucleated RBC % Immature Gran # Nucleated RBCs # Immature Plt Fraction D-Dimer, Quantitative Sodium Potassium Chloride Carbon Dioxide Anion Gap BUN Creatinine GFR Calculation BUN/Creatinine Ratio Glucose POC Glucose 202 H Calculated Osmolality Calcium Troponin I B-Natriuretic Peptide
[2017-06-01 05:51] LABS: Basophils % 0.5 % (0.0-0.8); Eosinophils # 0.3 10*3/uL (0.0-0.87); Eosinophils % 4.4 % (0.00-10.9); Hematocrit 34.6 VOL% (42.0-52.0); Hemoglobin 12.1 GM/DL (14.0-18.0); Immature Granulocytes % 0.2 %; Immature Granulocytes Absolute 0.01 #; Lymphocytes # 2.5 10*3/uL (1.4-4.0); Lymphocytes % 37.6 % (21.2-54.2); Mean Corpuscular Hemoglobin 31 PG (27-34); Mean Corpuscular Volume 89.6 FL (87-102); Mean Platelet Volume 11.2 FL (9.6-12.0); Monocytes # 0.7 10*3/uL (0.11-0.8); Monocytes % 11.2 % (1.7-12.7); Neutrophils % 46.1 % (38.7-73.9); Platelet Count 161 T/CUMM (130-400); Red Blood Count 3.86 MC/CUMM (3.8-5.5); Red Cell Distribution Width 13.2 % (9.3-17.3); White Blood Count 6.5 T/CUMM (4-12)
[2017-06-01 06:30] LABS: Calcium 9.3 MG/DL (8.5-10.1); Osmolality,Calculated 279.4 MOS/KG (273-304)
[2017-06-01 06:48] LABS: VLDL CHOLESTEROL 50.6 MG/DL
--- NOTE | 2017-06-01 07:30 | EKG Report ---
Stationary ECG Study 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
--- NOTE | 2017-06-01 08:00 | EKG Report ---
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
[2017-06-01] MEDS: INSULIN REGULAR 100 UNIT/ML SUBCUT SCH ×4 (08:40→21:29)
[2017-06-01] MEDS: SOTALOL 80 MG TABLET PO SCH ×2 (08:54→21:29)
[2017-06-01] MEDS: ASPIRIN EC 81 MG TABLET PO SCH (08:55)
[2017-06-01] MEDS: VALSARTAN 80 MG TABLET PO SCH ×2 (08:55→21:26)
[2017-06-01] MEDS: PANTOPRAZOLE 40 MG TABLET PO SCH (08:56)
[2017-06-01] MEDS: metFORMIN 500 MG TABLET PO SCH ×2 (08:56→21:26)
[2017-06-01] MEDS: CLOPIDOGREL 75 MG TABLET PO SCH (08:57)
[2017-06-01] MEDS: GABAPENTIN 300 MG CAPSULE PO SCH ×3 (08:57→21:26)
[2017-06-01] MEDS: APIXABAN 2.5 MG TABLET PO SCH ×2 (08:57→21:26)
[2017-06-01] MEDS ORDERED: METOPROLOL SUCCINATE XL 25 MG TABLET PO SCH (09:00)
[2017-06-01] MEDS: LEVOTHYROXINE 50 MCG TABLET PO SCH (21:26)
--- NOTE | 2017-06-02 07:24 | EKG Report ---
Stationary ECG Study 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
[2017-06-02] MEDS: INSULIN REGULAR 100 UNIT/ML SUBCUT SCH ×3 (07:59→16:53)
[2017-06-02] MEDS: metFORMIN 500 MG TABLET PO SCH (09:30)
[2017-06-02] MEDS: CLOPIDOGREL 75 MG TABLET PO SCH (09:30)
[2017-06-02] MEDS: ASPIRIN EC 81 MG TABLET PO SCH (09:30)
[2017-06-02] MEDS: PANTOPRAZOLE 40 MG TABLET PO SCH (09:30)
[2017-06-02] MEDS: VALSARTAN 80 MG TABLET PO SCH (09:30)
[2017-06-02] MEDS: SOTALOL 80 MG TABLET PO SCH ×2 (09:30→11:15)
[2017-06-02] MEDS: APIXABAN 2.5 MG TABLET PO SCH (09:31)
[2017-06-02] MEDS: GABAPENTIN 300 MG CAPSULE PO SCH ×2 (09:35→15:36)
[2017-06-02] MEDS: oxyCODONE ER 40 MG TABLET PO PRN (09:38)
--- NOTE | 2017-06-02 15:03 | Cardiology Progress Note ---
Leonard Choi April, RN, am scribing for, and in the presence of, Kristin Long MD 15:02. Assessment and Plan (1) Paroxysmal atrial fibrillation with rapid ventricular response Status: Acute Current Visit: Yes (2) Bradycardia Status: Acute Current Visit: Yes (3) Chest pain Status: Acute Current Visit: Yes (4) Coronary artery disease Status: Chronic Current Visit: Yes Qualifiers: Coronary Disease-Associated Artery/Lesion type: [place] artery [place] vs. transplanted heart: [place] heart Associated angina: angina presence unspecified Qualified Code(s): I25.10 - Atherosclerotic heart disease of [place] coronary artery without angina pectoris (5) Dyslipidemia Status: Chronic Current Visit: Yes (6) Hypertension Status: Chronic Current Visit: No (7) Diabetes Status: Chronic Current Visit: Yes Qualifiers: Diabetes mellitus type: type 2 Diabetes mellitus complication status: with neurologic complications Diabetes mellitus complication detail: with polyneuropathy Diabetes mellitus fci insulin use: without fci use Qualified Code(s): E11.42 - Type 2 diabetes mellitus with diabetic polyneuropathy Cardiology - PN: Subj Interval history: Test Borer: Dr. Castro SUMMARY: Mr. Underwood is a 66-year-old male who is followed by Dr. Castro with known coronary artery disease, paroxysmal atrial fibrillation, and diabetes. On April 21, 2017, he had drug-eluting stents placed to the mid and ostial RCA and angioplasty of mid LAD stenosis Dr. Castro. He had been on Eliquis for his atrial fibrillation, but after his stent the Eliquis was discontinued start on Brilinta. He was having problems with Dr. Csatro but was related to the Brilinta and it was discontinued and he was started on aspirin and Plavix. He was admitted to our facility May 31 with complaints of tachypalpitations and chest discomfort. He reportedly only had chest discomfort with palpitations. States his blood pressure and heart rate have been erratic the day of admission and his machine would not "read it." Upon arrival to our emergency department he was in sinus bradycardia and had a mildly elevated troponin. His initial troponin was 0.061, this has trended down. On last check it was 0.031. It was felt he was having intermittent atrial fibrillation, so his Toprol was discontinued and he was started on sotalol 80 mg twice daily. June 02, 2017: Mr. Underwood is seen resting in bed no acute distress. He denies any further chest pain, palpitations, or shortness of breath. EKG this morning showed sinus bradycardia with heart rate of 47. Currently telemetry monitoring shows sinus bradycardia with heart rates in the 50s. He has had 3 doses of sotalol, his dose last night and this morning was held because of bradycardia. Eliquis 2.5 p.o. twice daily has been started. Assessment/plan: 1. Paroxysmal atrial fibrillation with rapid ventricular response--he is maintained sinus rhythm with heart rates in the 40s and 50s. We will not be able to continue Sotalol due to his bradycardia. 2. Bradycardia 3. Chest pain--he has had no further chest pain 4. Coronary artery disease--history of stents in April of this year. He is on dual antiplatelet therapy with 81 mg aspirin and Plavix. 5. Dyslipidemia-- 6. Diabetes--his home meds have been restarted. Accu-Cheks before meals and at bedtime have been initiated with sliding scale insulin. We are going to discharge him home today because he has not had any recurrent atrial fibrillation since this hospitalization. He does not tolerate the sotalol due to his resting bradycardia. We will have him restart his Toprol-XL in a few days because this maintained his heart rate in the 50s. We will give him some samples of the lower dose Eliquis to try. He will check a CBC at follow up with Dr. Castro. Exam (Progress Note) - Constitutional Vitals: Period Temp Pulse Resp BP Sys/Heredia Pulse Ox Last 24 Hr 96.7 F-98.2 F 49-54 16-20 128-196/68-86 92-98 Result/EKG - Labs CBC & BMP: 06/01/17 05:27 06/01/17 05:27 Lab Results: I have reviewed the past 24 hour labs Labs: Laboratory Results - last 24 hr 06/01/17 06/01/17 06/01/17 11:36 17:05 21:22 POC Glucose 122 H 98 110 H 06/02/17 07:31 POC Glucose 90 Steph, Kristin Long MD, personally performed the services described in this documentation, ascribed by Loan Valle RN in my presence, and it is both accurate and complete 502 .
--- NOTE | 2017-06-02 15:05 | Discharge Summary ---
Hospital Course - Hospital Course Hospital Course: SUMMARY: Mr. Underwood is a 66-year-old male who is followed by Dr. Castro with known coronary artery disease, paroxysmal atrial fibrillation, and diabetes. On April 21, 2017, he had drug-eluting stents placed to the mid and ostial RCA and angioplasty of mid LAD stenosis Dr. Castro. He had been on Eliquis for his atrial fibrillation, but after his stent the Eliquis was discontinued start on Brilinta. He was having problems with Dr. Castro but was related to the Brilinta and it was discontinued and he was started on aspirin and Plavix. He was admitted to our facility May 31 with complaints of tachypalpitations and chest discomfort. He reportedly only had chest discomfort with palpitations. States his blood pressure and heart rate have been erratic the day of admission and his machine would not "read it." Upon arrival to our emergency department he was in sinus bradycardia and had a mildly elevated troponin. His initial troponin was 0.061, this has trended down. On last check it was 0.031. It was felt he was having intermittent atrial fibrillation, so his Toprol was discontinued and he was started on sotalol 80 mg twice daily. June 02, 2017: Mr. Underwood is seen resting in bed no acute distress. He denies any further chest pain, palpitations, or shortness of breath. EKG this morning showed sinus bradycardia with heart rate of 47. Currently telemetry monitoring shows sinus bradycardia with heart rates in the 50s. He has had 3 doses of sotalol, his dose last night and this morning was held because of bradycardia. Eliquis 2.5 p.o. twice daily has been started. Assessment/plan: 1. Paroxysmal atrial fibrillation with rapid ventricular response--he is maintained sinus rhythm with heart rates in the 40s and 50s. We will not be able to continue Sotalol due to his bradycardia. 2. Bradycardia 3. Chest pain--he has had no further chest pain 4. Coronary artery disease--history of stents in April of this year. He is on dual antiplatelet therapy with 81 mg aspirin and Plavix. 5. Dyslipidemia-- 6. Diabetes--his home meds have been restarted. Accu-Cheks before meals and at bedtime have been initiated with sliding scale insulin. We are going to discharge him home today because he has not had any recurrent atrial fibrillation since this hospitalization. He does not tolerate the sotalol due to his resting bradycardia. We will have him restart his Toprol-XL in a few days because this maintained his heart rate in the 50s. We will give him some samples of the lower dose Eliquis to try. He will check a CBC at follow up with Dr. Castro. Diagnosis - Discharge Diagnosis (1) Paroxysmal atrial fibrillation with rapid ventricular response Status: Acute (2) Bradycardia Status: Acute (3) Chest pain Status: Acute (4) Coronary artery disease Status: Chronic (5) Dyslipidemia Status: Chronic (6) Hypertension Status: Chronic (7) Diabetes Status: Chronic Discharge Plan - Discharge Data Disposition: Disch To Home/Self Care Condition at Discharge: Stable Discharge Diet: heart healthy Hygiene: no restrictions Weight Bearing at Discharge: full weight bearing Driving: no restrictions - Discharge Medications New Diltiazem Tab [Cardizem Tab] 30 mg PO TID PRN #30 tablet PRN Reason: Palpitations Apixaban [Eliquis] 2.5 mg PO BID #60 tablet Continue Oxycodone HCl [Oxycontin] 80 mg PO TID PRN PRN Reason: Pain Gabapentin Cap/Tab [Neurontin Cap/Tab] 300 mg PO TID #90 capsule glipiZIDE XL [Glucotrol Xl] 10 mg PO BID #120 tablet Levothyroxine Tab [Synthroid Tab] 50 mcg PO QPM Valsartan 80 mg PO BID Aspirin EC Tab 81 mg PO QAM Clopidogrel [Plavix] 75 mg PO QAM Metformin HCl 1,000 mg PO BID raNITIdine HCl [Ranitidine HCl] 150 mg PO BID PRN PRN Reason: GASTRIC UPSET HYDROcodone/ACETAMIN 10-325 [[place] 10-325] 1 tablet PO BID PRN PRN Reason: Pain Metoprolol Succinate Xl [Toprol Xl] 25 mg PO QAM - Follow Up or Referral Follow Up: Alon Castro MD [Physician] - 2 Weeks - Forms/Instructions Additional Discharge Instructions: CBC in 2 weeks, approximately 2 days prior to follow-up visit with Dr. Castro. Monitor stools for a change to a dark color, tarry substance or blood. Notify doctor if this occurs. Take the Cardizem 1 pill as needed for palpitations. Do not take more frequently than every 6 hours. Exam - Constitutional Vitals: Period Temp Pulse Resp BP Sys/Heredia Pulse Ox Last 24 Hr 96.7 F-98.4 F 49-52 16-201 131-196/68-86 92-98 Exam: General appearance: normal weight, no acute distress - Head Head exam: Present: normal inspection, normocephalic, atraumatic. Absent: hematoma, laceration - Eye Eye exam: Present: EOMI. Absent: conjunctival injection, nystagmus, periorbital swelling, scleral icterus, laceration to eyelids Pupils: Present: PERRL. Absent: constricted, dilated, fixed, irregular, unequal - ENT ENT exam: Present: normal exam, normal external ear exam - Neck Neck exam: Present: normal inspection. Absent: lymphadenopathy, meningismus, tenderness, thyromegaly - Respiratory Respiratory exam: Present: clear to auscultation bilaterally. Absent: accessory muscle use, chest wall tenderness - Cardiovascular Cardiovascular exam: Present: regular rate and rhythm. Absent: carotid bruit, gallop, JVD, rubs - GI/Abdominal GI/Abdominal exam: Present: normal bowel sounds, soft. Absent: distended, firm , guarding, hernia, mass, tenderness, rebound. - Extremities Exam Extremities exam: Present: normal inspection, normal capillary refill. Absent: calf tenderness, edema - Back Exam Back exam: Present: normal inspection. Absent: muscle spasm, vertebral tenderness - Neurological Exam Neurological exam: Present: alert, oriented X3, grossly intact without resting or intention tremor - Psychiatric Psychiatric exam: Present: normal affect, normal mood - Skin Skin exam: Present: normal color, warm, dry, intact. Absent: cyanosis, diaphoretic, rash, urticaria Discharge Results Procedures and tests throughout hospitalization: Pending Orders 06/03/17 04:00 Basic Metabolic Panel w/Mg IN AM Comp Blood Count Auto Diff IN AM 06/04/17 04:00 Basic Metabolic Panel w/Mg IN AM Comp Blood Count Auto Diff IN AM 06/05/17 04:00 Basic Metabolic Panel w/Mg IN AM Comp Blood Count Auto Diff IN AM Labs on day of discharge: Labs from last 24 hours 06/02/17 06/02/17 06/01/17 12:16 07:31 21:22 POC Glucose 144 H 90 110 H 06/01/17 17:05 POC Glucose 98 DS: Provider Date of admission: 05/31/17 13:30 Primary care physician: . No PCP Attending physician on admission: Isabela Ibarra DO Discharging clinician: Kristin Long, Expected date of discharge: 06/02/17
[2017-06-02 15:56] VITALS: BP 146/82
== END 2017-06-02 16:58 | disposition home or self-care (01) | DRG 309 ==
LOC: N.ED 10:48 → N.TELEN 13:30
PROVIDERS: ADMIT Internal Medicine Cardiovascular Disease; ATTEND Internal Medicine Cardiovascular Disease

== ENCOUNTER 2017-07-23 16:19 | Observation (INO) ==
[2017-07-23] MEDS ORDERED: GLUCAGON 1 MG VIAL IM PRN (17:50)
[2017-07-23] MEDS ORDERED: DEXTROSE 50% 25 GM/50 ML SYRINGE IV PRN (17:50)
[2017-07-23] MEDS ORDERED: DILTIAZEM 30 MG TABLET PO PRN (17:53)
[2017-07-23] MEDS ORDERED: FAMOTIDINE 20 MG TABLET PO PRN (17:53)
[2017-07-23] MEDS ORDERED: LEVOTHYROXINE 50 MCG TABLET PO SCH ×2 (19:00→21:00)
[2017-07-23 19:42] LABS: Basophils % 0.4 % (0.0-0.8); Eosinophils # 0.3 10*3/uL (0.0-0.87); Eosinophils % 3.5 % (0.00-10.9); Hematocrit 38.4 VOL% (42.0-52.0); Hemoglobin 13.2 GM/DL (14.0-18.0); Immature Granulocytes % 0.2 %; Immature Granulocytes Absolute 0.02 #; Lymphocytes # 2.8 10*3/uL (1.4-4.0); Lymphocytes % 31.3 % (21.2-54.2); Mean Corpuscular HGB Conc 34.4 GM/DL (32-36); Mean Corpuscular Hemoglobin 31 PG (27-34); Mean Corpuscular Volume 89.9 FL (87-102); Mean Platelet Volume 11.4 FL (9.6-12.0); Monocytes # 0.8 10*3/uL (0.11-0.8); Monocytes % 8.8 % (1.7-12.7); Neutrophils % 55.8 % (38.7-73.9); Platelet Count 162 T/CUMM (130-400); Red Blood Count 4.27 MC/CUMM (3.8-5.5); Red Cell Distribution Width 13.2 % (9.3-17.3)
[2017-07-23 20:22] LABS: Alanine Aminotransferase 30 U/L (16-61); Albumin 3.9 G/DL (3.4-5.0); Alkaline Phosphatase 79 U/L (45-117); Aspartate Amino Transferase 29 U/L (0-37); Blood Urea Nitrogen 17 MG/DL (7-18); Calcium 9.5 MG/DL (8.5-10.1); Glucose 114 MG/DL (74-106); Magnesium 1.7 MG/DL (1.8-2.4); Osmolality,Calculated 277.7 MOS/KG (273-304); Potassium 4.2 MMOL/L (3.5-5.1); Sodium 138 MMOL/L (136-145); Total Protein 7.4 G/DL (6.4-8.3); Troponin I Only < 0.015 NG/ML (0.00-0.045)
[2017-07-23] MEDS: metFORMIN 500 MG TABLET PO SCH (21:11)
[2017-07-23] MEDS: VALSARTAN 80 MG TABLET PO SCH (21:11)
[2017-07-23] MEDS: GABAPENTIN 300 MG CAPSULE PO SCH (21:11)
[2017-07-23] MEDS: oxyCODONE ER 40 MG TABLET PO PRN (21:11)
--- NOTE | 2017-07-24 08:18 | EKG Report ---
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
[2017-07-24] MEDS ORDERED: METOPROLOL SUCCINATE XL 25 MG TABLET PO SCH (09:00)
[2017-07-24] MEDS: oxyCODONE ER 40 MG TABLET PO PRN (09:23)
[2017-07-24] MEDS ORDERED: MAGNESIUM SULF RIDER 2 GM in PREMIX 1 EACH IV PRN (09:32)
[2017-07-24] MEDS ORDERED: ONDANSETRON 4 MG/2 ML VIAL IV PRN (09:32)
[2017-07-24] MEDS ORDERED: ZALEPLON 5 MG CAPSULE PO PRN (09:32)
[2017-07-24] MEDS ORDERED: ACETAMINOPHEN 325 MG TABLET PO PRN (09:32)
[2017-07-24] MEDS ORDERED: MAGNESIUM SULF RIDER 4 GM in PREMIX 1 EACH IV PRN (09:32)
--- NOTE | 2017-07-24 09:32 | Cardiology History & Physical ---
Assessment and Plan - Time spent with patient Time spent with patient: Greater than 30 minutes (1) Chest pain Status: Acute Assessment and plan: SEE PLAN OF CARE LISTED BELOW. Current Visit: Yes (2) Bradycardia Status: Acute Assessment and plan: SEE PLAN OF CARE LISTED BELOW. Current Visit: Yes (3) History of atrial fibrillation Status: Chronic Assessment and plan: SEE PLAN OF CARE LISTED BELOW. Current Visit: No (4) Hypomagnesemia Status: Acute Assessment and plan: SEE PLAN OF CARE LISTED BELOW. Current Visit: Yes (5) Coronary artery disease Status: Chronic Assessment and plan: SEE PLAN OF CARE LISTED BELOW. Current Visit: No Qualifiers: Coronary Disease-Associated Artery/Lesion type: [place] artery [place] vs. transplanted heart: [place] heart Associated angina: angina presence unspecified Qualified Code(s): I25.10 - Atherosclerotic heart disease of [place] coronary artery without angina pectoris (6) Diabetes Status: Chronic Assessment and plan: SEE PLAN OF CARE LISTED BELOW. Current Visit: No Qualifiers: Diabetes mellitus type: type 2 Diabetes mellitus complication status: with neurologic complications Diabetes mellitus complication detail: with polyneuropathy Diabetes mellitus intermediate insulin use: without predatory animal exterminator use Qualified Code(s): E11.42 - Type 2 diabetes mellitus with diabetic polyneuropathy (7) Dyslipidemia Status: Chronic Assessment and plan: SEE PLAN OF CARE LISTED BELOW. Current Visit: Yes (8) Hypertension Status: Chronic Assessment and plan: SEE PLAN OF CARE LISTED BELOW. Current Visit: Yes (9) Peripheral neuropathy Status: Chronic Assessment and plan: SEE PLAN OF CARE LISTED BELOW. Current Visit: No Qualifiers: Peripheral neuropathy type: polyneuropathy associated with underlying disease Qualified Code(s): G63 - Polyneuropathy in diseases classified elsewhere (10) Weakness Status: Acute Assessment and plan: SEE PLAN OF CARE LISTED BELOW. Current Visit: Yes (11) Chronic anticoagulation Status: Acute Current Visit: Yes (12) Hypothyroid Status: Chronic Assessment and plan: SEE PLAN OF CARE LISTED BELOW. Current Visit: No History of Present Illness Chief complaint: chest pain, weakness. 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 Underwood is a 66 year old male with known history of coronary artery disease , routinely followed by Dr. Castro. Cardiac risk factors significant for: Known CAD, diabetes, hypertension, dyslipidemia and former smoker (quit smoking in 1991). Past medical history includes: Atrial fibrillation with RVR and neuropathy. Most recent cardiac catheterization was performed in April 21, 2017. The LAD had an 80% focal mid vessel stenosis which was angioplastied with balloon. Ostial and mid RCA was stented with drug-eluting stent. Patient was directly admitted from a the cardiology clinic yesterday for further evaluation of chest pain and weakness. He was seen by Dr. sungback is suspected possible anemia as he is on all 3 Plavix, aspirin and Eliquis. He also just recently underwent angioplasty and wanted to rule out restenosis. Patient reports great compliance with dual antiplatelet therapy. He has not missed a dose. Patient was seen and examined with Dr. Castro on the telemetry unit. He reports feeling dizzy, tired over the last couple of days. He also reports an episode of chest pain that occurred Friday while walking up a hill. Midsternal chest tightness. This only lasted a couple of minutes. No radiation. No recurrence since Friday. This was not associated with shortness of breath, nausea or diaphoresis. However, he does report intermittent episodes of shortness of breath and weakness over the last 4 days. He was worked into the cardiology clinic yesterday and was seen by Dr. Miles. Dr. Miles felt that he should be admitted to the hospital for rule out of myocardial infarction and worsening anemia. Patient was seen and examined the telemetry along with Dr. Castro. He is doing well today without complaints. He denies chest pain, heaviness and tightness. Denies shortness of breath. His lab work has been reviewed. His H& H is actually better than it was during his previous admissions. Cardiac biomarkers have been negative thus far. No changes in his EKGs. He is noted to be mildly bradycardic. We will decrease his beta-blockade. We have instructed patient to walk around the telemetry unit. If he is able to perform this activity without any complaints of chest pain, heaviness or tightness he may be eligible for discharge later this afternoon. We will continue to trend cardiac biomarkers for formal rule out of SD. Continue to cycle EKG. Consider addition of Imdur or Ranexa. I will further discuss with Dr. Castro and await his additional recommendations. IMPRESSION AND PLAN: 1. CHEST PAIN - Patient did have a isolated episode of chest pain while walking up a hill Friday morning. He has had no recurrence of this. It only lasted several minutes. First set of cardiac biomarkers negative. EKG without changes. No signs of restenosis. We will continue to cycle cardiac biomarkers and EKG to formally rule out SD. Continue dual antiplatelet therapy, beta- blockade, lipid-lowering agent and ARB. We have instructed patient to walk around the telemetry unit. If he is able to do this without trouble, experiencing chest pain, heaviness or tightness he may be eligible for discharge later today. Could consider initiation of Imdur or Ranexa. 2. WEAKNESS - Suspect that this may be related to his bradycardia. We have decreased his beta blockade dose. We will continue to monitor his heart rate and further adjust as needed. CBC was checked and H&H is actually better than it was during his previous admissions. No evidence of anemia. 3. HISTORY OF ATRIAL FIBRILLATION - Paroxysmal. In sinus rhythm. Continue beta-blockade and calcium channel sudhir. Continue Eliquis for stroke prevention. 4. HISTORY OF KNOWN CAD - No ACS. Continue dual antiplatelet therapy, beta- blockade, lipid-lowering agent and ARB. 5. DIABETES - Well controlled. Continue current plan of care per 6. DYSLIPIDEMIA - Continue lipid-lowering agent. Lipid panel in the morning. 7. HYPOTHYROIDISM - Continue thyroid replacement. Free T4 in normal limits. 8. CHRONIC ANTICOAGULATION - Continue Eliquis for stroke prevention. No overt bleeding or signs of worsening anemia. Daily CBC. 9. BRADYCARDIA - Beta-blockade dose decreased. 10 HYPOMAGNESEMIA - Slow-Mag ordered. Daily magnesium. Home Medications Medication Instructions Recorded Confirmed Type Gabapentin Cap/Tab [Neurontin 300 mg PO TID #90 capsule 03/10/17 07/23/17 Rx Cap/Tab] HYDROcodone/ACETAMIN 10-325 [[place] 1 tablet PO BID PRN 03/10/17 07/23/17 History 10-325] Oxycodone HCl [Oxycontin] 80 mg PO TID PRN 03/10/17 07/23/17 History glipiZIDE XL [Glucotrol Xl] 10 mg PO BID #120 tablet 03/10/17 07/23/17 Rx raNITIdine HCl [Ranitidine HCl] 150 mg PO BID PRN 03/10/17 07/23/17 History Levothyroxine Tab [Synthroid Tab] 50 mcg PO QPM 04/17/17 07/23/17 History Valsartan 80 mg PO BID 04/21/17 07/23/17 History Aspirin EC Tab 81 mg PO QAM 05/31/17 07/23/17 History Clopidogrel [Plavix] 75 mg PO QAM 05/31/17 07/23/17 History Metformin HCl 1,000 mg PO BID 05/31/17 07/23/17 History Metoprolol Succinate Xl [Toprol Xl] 25 mg PO QAM 05/31/17 07/23/17 History Apixaban [Eliquis] 2.5 mg PO BID #60 tablet 06/02/17 07/23/17 Rx Diltiazem Tab [Cardizem Tab] 30 mg PO TID PRN #30 tablet 06/02/17 07/23/17 Rx Allergies Allergy/AdvReac Type Severity Reaction Status Date / Time carisoprodol Allergy RASH Verified 04/21/17 06:23 [From Soma Compound] ketorolac [From Toradol] Allergy ITCHING Verified 04/21/17 06:23 methocarbamol [From Robaxin] Allergy RASH Verified 03/08/17 20:35 piroxicam [From Feldene] Allergy RASH Verified 04/21/17 06:23 - Constitutional Constitutional: Present: as per HPI, fatigue, lethargy, malaise, weakness. Absent: fever(s), frequent falls, weight gain, weight loss - Cardiovascular Cardiovascular: Present: as per HPI, chest pain with activity, dyspnea, lightheadedness. Absent: claudication, diaphoresis, dyspnea on exertion, edema , radiating jaw, neck or arm pain, orthopnea, palpitations, PND - Respiratory Respiratory: Present: as per HPI, dyspnea. Absent: cough, dyspnea on exertion, wheezing, snoring, pain on inspiration, change in phlegm color - Gastrointestinal Gastrointestinal: Present: as per HPI. Absent: abdominal pain, change in bowel habits, coffee ground emesis, heartburn, hematemesis, hematochezia, melena, nausea, vomiting - Neurological Neurological: Present: as per HPI, dizziness. Absent: abnormal gait, abnormal speech, behavioral changes, frequent falls, syncope Medical,Surgical,& Family Hx - Medical History Cardio: History of: Cardiac Dysrhythmia (Paroxysmal atrial fibrillation), CAD ( PCI 617 as mentioned above), Hypertension Neurology: No history of: Seizures HEENT: History of: Dental Problems Comment Only: HEENT Problems (SINUS SURGERY) Endocrine: History of: Diabetes Mellitus (IDDM) (With coronary artery disease and peripheral neuropathy), Dyslipidemia, Thyroid Disorder Rheumatology: History of;: Fibromyalgia, Psoriasis Gastrointestinal: History of: GERD Musculoskeletal: History of: Back/Neck Problems (back surgery) - Surgical History Cardiac Surgeries: Sugical HX of: Cardiac Catheterization (STENT APRIL 2017) Neurologic Surgeries: Patient denies: Neurologic Surgery Abdominal Surgeries: Surgical HX of: Abdominal Surgery (gall bladder), Cholecystectomy, Colonoscopy, EGD Patient denies: Appendectomy Reproductive Surgeries: Patient denies;: Genitourinary Surgery Orthopedic Surgeries: Surgical HX of;: Spinal Surgery - Family History Family History: Reports;: Family Diabetes, Family Heart Disease (Mother of SD), Family Hypertension - Social History Smoking Status: Former smoker Frequency of Alcohol Use: None Type of Drug Use: None Marital Status: Lives With:: Spouse Functional capacity: independent ambulation Cardiology Physical Exam - Constitutional Vitals: Vital Signs Temp Pulse Resp BP Pulse Ox 97.7 F 51 L 18 126/70 96 07/24/17 08:00 07/24/17 08:00 07/24/17 08:00 07/24/17 08:00 07/24/17 08:00 Intake and Output 07/23/17 07/24/17 07/24/17 22:59 06:59 14:59 Intake Total 400 / 400 120 / 120 Balance 400 / 400 120 / 120 Intake: Oral 400 / 400 120 / 120 Other: # Voids 3 3 Weight 201 lb 6.4 oz Exam: General: Appears well with no apparent distress. Pleasant and cooperative. Appears comfortable. HEENT: PERRL, normocephalic, atraumatic. Mucous membranes moist. No jaundice noted. Conjunctiva moist and clear, sclerae anicteric Neck: No JVD/HJR, no thyromegaly or lymphadenopathy noted. No carotid bruit appreciated Cardiac: Regular rate and rhythm. No murmur rub or gallop. Lungs: Clear to auscultation without accessory muscle use to assist the respiratory pattern. Not requiring oxygen. Abdomen: Soft, bowel sounds normoactive. Nontender and nondistended. No abdominal bruit or thrill noted. No masses noted. Extremities: No clubbing, cyanosis noted. No edema noted. Upper extremity pulses 2+. Lower extremity pulses 2+. Capillary refill less than 3 seconds. Skin: No unusual lesions or rashes. No skin breakdown appreciated. Neuro: Awake, alert and oriented 3. Moves all extremities well without hemiparesis or paralysis. No essential tremor is appreciated. Result/EKG - Labs CBC & BMP: 07/23/17 19:19 07/23/17 19:19 Lab Results: I have reviewed the past 24 hour labs Labs: Laboratory Results - last 24 hr 07/23/17 07/23/17 07/23/17 17:44 19:19 19:19 WBC 9.0 RBC 4.27 Hgb 13.2 L Hct 38.4 L MCV 89.9 MCH 31 MCHC 34.4 RDW 13.2 Plt Count 162 MPV 11.4 Neut % (Auto) 55.8 Lymph % (Auto) 31.3 [place] % (Auto) 8.8 Eos % (Auto) 3.5 Baso % (Auto) 0.4 Neut # (Auto) 5.0 Lymph # (Auto) 2.8 [place] # (Auto) 0.8 Eos # (Auto) 0.3 Baso # (Auto) 0.0 Immature Gran % 0.2 Nucleated RBC % 0.0 Immature Gran # 0.02 Nucleated RBCs # 0.00 Immature Plt Fraction 0.0 Sodium 138 Potassium 4.2 Chloride 102 Carbon Dioxide 29 Anion Gap 11.2 BUN 17 Creatinine 1.20 GFR Calculation 78 BUN/Creatinine Ratio 14.00 Glucose 114 H POC Glucose 101 Calculated Osmolality 277.7 Calcium 9.5 Magnesium 1.7 L Total Bilirubin 0.40 AST 29 ALT 30 Alkaline Phosphatase 79 Total Creatine Kinase 116 CK-MB (CK-2) 2.4 Troponin I < 0.015 Total Protein 7.4 Albumin 3.9 Globulin 3.5 Albumin/Globulin Ratio 1.1 Free T4 0.80 TSH 3rd Generation 5.650 H 07/23/17 07/24/17 21:16 08:04 WBC RBC Hgb Hct MCV MCH MCHC RDW Plt Count MPV Neut % (Auto) Lymph % (Auto) [place] % (Auto) Eos % (Auto) Baso % (Auto) Neut # (Auto) Lymph # (Auto) [place] # (Auto) Eos # (Auto) Baso # (Auto) Immature Gran % Nucleated RBC % Immature Gran # Nucleated RBCs # Immature Plt Fraction Sodium Potassium Chloride Carbon Dioxide Anion Gap BUN Creatinine GFR Calculation BUN/Creatinine Ratio Glucose POC Glucose 177 H 113 H Calculated Osmolality Calcium Magnesium Total Bilirubin AST ALT Alkaline Phosphatase Total Creatine Kinase CK-MB (CK-2) Troponin I Total Protein Albumin Globulin Albumin/Globulin Ratio Free T4 TSH 3rd Generation
[2017-07-24 09:46] LABS: Basophils % 0.3 % (0.0-0.8); Eosinophils # 0.4 10*3/uL (0.0-0.87); Eosinophils % 4.5 % (0.00-10.9); Hematocrit 37.6 VOL% (42.0-52.0); Hemoglobin 13.4 GM/DL (14.0-18.0); Immature Granulocytes % 0.2 %; Immature Granulocytes Absolute 0.02 #; Lymphocytes # 2.6 10*3/uL (1.4-4.0); Lymphocytes % 30.4 % (21.2-54.2); Mean Corpuscular HGB Conc 35.6 GM/DL (32-36); Mean Corpuscular Hemoglobin 31 PG (27-34); Mean Corpuscular Volume 88.1 FL (87-102); Mean Platelet Volume 11.6 FL (9.6-12.0); Monocytes # 0.8 10*3/uL (0.11-0.8); Monocytes % 8.7 % (1.7-12.7); Neutrophils # 4.9 10*3/uL (1.4-7.4); Neutrophils % 55.9 % (38.7-73.9); Platelet Count 165 T/CUMM (130-400); Red Blood Count 4.27 MC/CUMM (3.8-5.5); Red Cell Distribution Width 13.1 % (9.3-17.3); White Blood Count 8.7 T/CUMM (4-12)
[2017-07-24] MEDS ORDERED: ENOXAPARIN 40 MG/0.4 ML SYRINGE SUBCUT SCH (10:00)
[2017-07-24 10:10] LABS: Calcium 9.4 MG/DL (8.5-10.1); Magnesium 1.8 MG/DL (1.8-2.4); Osmolality,Calculated 279.5 MOS/KG (273-304); Potassium 4.1 MMOL/L (3.5-5.1)
--- NOTE | 2017-07-24 10:13 | Discharge Summary ---
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 Underwood is a 66 year old male with known history of coronary artery disease , routinely followed by Dr. aCstro. Cardiac risk factors significant for: Known CAD, diabetes, hypertension, dyslipidemia and former smoker (quit smoking in 1991). Past medical history includes: Atrial fibrillation with RVR and neuropathy. Most recent cardiac catheterization was performed in April 21, 2017. The LAD had an 80% focal mid vessel stenosis which was angioplastied with balloon. Ostial and mid RCA was stented with drug-eluting stent. Patient was directly admitted from a the cardiology clinic yesterday for further evaluation of chest pain and weakness. He was seen by Dr. Harveyvac is suspected possible anemia as he is on all 3 Plavix, aspirin and Eliquis. He also just recently underwent angioplasty and wanted to rule out restenosis. Patient reports great compliance with dual antiplatelet therapy. Patient was seen and examined along with Dr. Castro on the telemetry unit. He has done well in this morning he is without complaints of chest pain, heaviness or tightness. He reports that he feels back to his baseline. He has ruled out for myocardial infarction. He has walked around the telemetry unit several times without experiencing chest pain, heaviness or tightness. EKG has been without ischemic changes. He was noted to be slightly bradycardic with resting heart rate in the low 50s. Suspect that this is most likely contributing to his weakness. His beta-sudhir dose has been decreased. His magnesium was also slightly low at 1.7. He will be discharged home with a prescription for slow magnesium. CBC was reviewed and his H&H was actually better than it has been during his previous admissions. H&H 13.4 and 37.6, no overt bleeding. Safe to continue dual antiplatelet therapy as well as low-dose Eliquis. He does have history of paroxysmal atrial fibrillation. He has been in sinus rhythm his hospitalization. Continue low-dose Eliquis for stroke prevention. Patient is anxious for discharge home today as he feels so much better. Having felt that he has met maximal medical therapy, he will be discharged home in stable condition. Patient will follow up with Dr. Castro in 2 weeks with repeat EKG. Patient verbalizes understanding of discharge instructions that is her medications. - Time spent with patient Time with patient DS: Greater than 30 minutes Diagnosis - Discharge Diagnosis (1) Chest pain Status: Resolved (2) Bradycardia Status: Resolved (3) History of atrial fibrillation Status: Chronic (4) Hypomagnesemia Status: Acute (5) Coronary artery disease Status: Chronic (6) Diabetes Status: Chronic (7) Dyslipidemia Status: Chronic (8) Hypertension Status: Chronic (9) Peripheral neuropathy Status: Chronic (10) Weakness Status: Resolved (11) Chronic anticoagulation Status: Chronic (12) Hypothyroid Status: Chronic Specialty Discharge - Follow Up or Referrals Follow up with: Alon Castro MD [Physician] - 2 Weeks (EKG) Discharge Plan - Discharge Data Disposition: Disch To Home/Self Care Condition at Discharge: Stable Discharge Diet: heart healthy, low fat, low cholesterol, low salt diet Activity: resume usual activities as tolerated Hygiene: no restrictions Weight Bearing at Discharge: weight bear as tolerated Driving: no restrictions Contact your physician if you experience:: fever over 101, Difficulty voiding, Redness or swelling, Nausea/Vomiting, Shortness of breath, Bleeding, pain uncontrolled by pain medications - Discharge Medications New Metoprolol Succinate Xl [Toprol Xl] 12.5 mg PO DAILY #15 tablet Atorvastatin [Lipitor] 40 mg PO BEDTIME #30 tablet Magnesium Chloride [Slow Mag] 64 mg PO BID #60 tablet Continue Oxycodone HCl [Oxycontin] 80 mg PO TID PRN PRN Reason: Pain Gabapentin Cap/Tab [Neurontin Cap/Tab] 300 mg PO TID #90 capsule glipiZIDE XL [Glucotrol Xl] 10 mg PO BID #120 tablet Levothyroxine Tab [Synthroid Tab] 50 mcg PO QPM Valsartan 80 mg PO BID Aspirin EC Tab 81 mg PO QAM Clopidogrel [Plavix] 75 mg PO QAM Metformin HCl 1,000 mg PO BID Diltiazem Tab [Cardizem Tab] 30 mg PO TID PRN #30 tablet PRN Reason: Palpitations raNITIdine HCl [Ranitidine HCl] 150 mg PO BID PRN PRN Reason: GASTRIC UPSET HYDROcodone/ACETAMIN 10-325 [[place] 10-325] 1 tablet PO BID PRN PRN Reason: Pain Apixaban [Eliquis] 2.5 mg PO BID #60 tablet Discontinued Metoprolol Succinate Xl [Toprol Xl] 25 mg PO QAM - Follow Up or Referral - Forms/Instructions Exam - Constitutional Vitals: Period Temp Pulse Resp BP Sys/[place] Pulse Ox Last 24 Hr 96.6 F-97.7 F 51-60 16-20 126-183/70-84 95-99 Exam: General: Appears well with no apparent distress. Pleasant and cooperative. Appears comfortable. HEENT: PERRL, normocephalic, atraumatic. Mucous membranes moist. No jaundice noted. Conjunctiva moist and clear, sclerae anicteric Neck: No JVD/HJR, no thyromegaly or lymphadenopathy noted. No carotid bruit appreciated Cardiac: Regular rate and rhythm. No murmur rub or gallop. Lungs: Clear to auscultation without accessory muscle use to assist the respiratory pattern. Not requiring oxygen. Abdomen: Soft, bowel sounds normoactive. Nontender and nondistended. No abdominal bruit or thrill noted. No masses noted. Extremities: No clubbing, cyanosis noted. No edema noted. Upper extremity pulses 2+. Lower extremity pulses 2+. Capillary refill less than 3 seconds. Skin: No unusual lesions or rashes. No skin breakdown appreciated. Neuro: Awake, alert and oriented 3. Moves all extremities well without hemiparesis or paralysis. No essential tremor is appreciated. Discharge Results Procedures and tests throughout hospitalization: Pending Orders 07/24/17 07:59 BMP w/ Mg [Basic Metabolic Panel w/Mg] Stat 07/24/17 08:00 Troponin,CKMB & Ck Total Q3H 07/24/17 09:36 Lipid Panel Routine Urinalysis Routine 07/24/17 11:00 Troponin,CKMB & Ck Total Q3H 07/24/17 12:00 Troponin,CKMB & Ck Total Q3H 07/24/17 14:00 Troponin,CKMB & Ck Total Q3H 07/24/17 16:00 Troponin,CKMB & Ck Total Q3H 07/24/17 18:00 Troponin,CKMB & Ck Total Q3H 07/25/17 04:00 Basic Metabolic Panel IN AM Comp Blood Count Auto Diff IN AM Lipid Panel IN AM Magnesium IN AM Labs on day of discharge: Labs from last 24 hours 07/24/17 07/24/17 07/23/17 09:01 08:04 21:16 WBC 8.7 RBC 4.27 Hgb 13.4 L Hct 37.6 L MCV 88.1 MCH 31 MCHC 35.6 RDW 13.1 Plt Count 165 MPV 11.6 Neut % (Auto) 55.9 Lymph % (Auto) 30.4 [place] % (Auto) 8.7 Eos % (Auto) 4.5 Baso % (Auto) 0.3 Neut # (Auto) 4.9 Lymph # (Auto) 2.6 [place] # (Auto) 0.8 Eos # (Auto) 0.4 Baso # (Auto) 0.0 Immature Gran % 0.2 Nucleated RBC % 0.0 Immature Gran # 0.02 Nucleated RBCs # 0.00 Immature Plt Fraction 0.0 Sodium Potassium Chloride Carbon Dioxide Anion Gap BUN Creatinine GFR Calculation BUN/Creatinine Ratio Glucose POC Glucose 113 H 177 H Calculated Osmolality Calcium Magnesium Total Bilirubin AST ALT Alkaline Phosphatase Total Creatine Kinase CK-MB (CK-2) Troponin I Total Protein Albumin Globulin Albumin/Globulin Ratio Free T4 TSH 3rd Generation 07/23/17 07/23/17 07/23/17 19:19 19:19 17:44 WBC 9.0 RBC 4.27 Hgb 13.2 L Hct 38.4 L MCV 89.9 MCH 31 MCHC 34.4 RDW 13.2 Plt Count 162 MPV 11.4 Neut % (Auto) 55.8 Lymph % (Auto) 31.3 [place] % (Auto) 8.8 Eos % (Auto) 3.5 Baso % (Auto) 0.4 Neut # (Auto) 5.0 Lymph # (Auto) 2.8 [place] # (Auto) 0.8 Eos # (Auto) 0.3 Baso # (Auto) 0.0 Immature Gran % 0.2 Nucleated RBC % 0.0 Immature Gran # 0.02 Nucleated RBCs # 0.00 Immature Plt Fraction 0.0 Sodium 138 Potassium 4.2 Chloride 102 Carbon Dioxide 29 Anion Gap 11.2 BUN 17 Creatinine 1.20 GFR Calculation 78 BUN/Creatinine Ratio 14.00 Glucose 114 H POC Glucose 101 Calculated Osmolality 277.7 Calcium 9.5 Magnesium 1.7 L Total Bilirubin 0.40 AST 29 ALT 30 Alkaline Phosphatase 79 Total Creatine Kinase 116 CK-MB (CK-2) 2.4 Troponin I < 0.015 Total Protein 7.4 Albumin 3.9 Globulin 3.5 Albumin/Globulin Ratio 1.1 Free T4 0.80 TSH 3rd Generation 5.650 H DS: Provider Date of admission: 07/23/17 17:03 Primary care physician: . No PCP Attending physician on admission: Alon Perez Discharging clinician: Angelica Booth NP Expected date of discharge: 07/24/17
[2017-07-24 10:15] LABS: Troponin I Only < 0.015 NG/ML (0.00-0.045)
[2017-07-24] MEDS: metFORMIN 500 MG TABLET PO SCH (10:24)
[2017-07-24] MEDS: GABAPENTIN 300 MG CAPSULE PO SCH (10:24)
[2017-07-24] MEDS: VALSARTAN 80 MG TABLET PO SCH (10:24)
[2017-07-24] MEDS ORDERED: MAGNESIUM CHLORIDE 64 MG TABLET PO SCH (10:30)
[2017-07-24 10:40] LABS: Risk Ratio 3.62; VLDL CHOLESTEROL 37.2 MG/DL
--- NOTE | 2017-07-24 10:49 | EKG Report ---
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
[2017-07-24 11:02] LABS: Apearance,Urine CLEAR (Clear); Bilirubin,Urine Negative (Negative); Blood, Urine Small mg/dL (Negative); Glucose,Urine (UA) Negative (Negative); Ketones,Urine Negative (Negative); Nitrite,Urine Negative (Negative); Protein,Urine Negative; RBC,Urine <1 /HPF (0-4); Urine Color Straw (Yellow); Urine Specific Gravity 1.005 (1.001-1.035); Urine Urobilinogen < 2.0 EU/DL (0.2-1.0); WBC,Urine <1 /HPF (0-6)
[2017-07-24 12:16] VITALS: BP 136/73
[2017-07-24 13:01] LABS: Troponin I Only < 0.015 NG/ML (0.00-0.045)
--- NOTE | 2017-07-24 13:41 | EKG Report ---
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
[2017-07-24] MEDS ORDERED: ATORVASTATIN 40 MG TABLET PO SCH (21:00)
[2017-07-25] MEDS ORDERED: METOPROLOL SUCCINATE XL 25 MG TABLET PO SCH (09:00)
== END 2017-07-24 14:34 | disposition home or self-care (01) ==
LOC: N.TELES
PROVIDERS: ADMIT Internal Medicine Cardiovascular Disease; ATTEND Internal Medicine Cardiovascular Disease

== ENCOUNTER 2017-10-03 15:39 | Inpatient (IN) ==
[2017-10-03] MEDS ORDERED: MORPHINE 2 MG/1 ML SYRINGE IV PRN (15:55)
[2017-10-03] MEDS ORDERED: diphenhydrAMINE CAP 25 MG CAPSULE PO PRN (15:55)
[2017-10-03] MEDS ORDERED: MAGNESIUM SULF RIDER 2 GM in PREMIX 1 EACH IV PRN (15:55)
[2017-10-03] MEDS ORDERED: ZALEPLON 5 MG CAPSULE PO PRN (15:55)
[2017-10-03] MEDS ORDERED: MAGNESIUM SULF RIDER 4 GM in PREMIX 1 EACH IV PRN (15:55)
[2017-10-03] MEDS ORDERED: DOCUSATE SODIUM 100 MG CAPSULE PO PRN (15:55)
[2017-10-03] MEDS ORDERED: ONDANSETRON 4 MG/2 ML VIAL IV PRN (15:55)
[2017-10-03] MEDS ORDERED: BISACODYL 5 MG TABLET PO PRN (15:55)
[2017-10-03] MEDS ORDERED: DILTIAZEM 30 MG TABLET PO PRN (15:58)
[2017-10-03] MEDS ORDERED: NITROGLYCERIN SL 0.4 MG TABLET SL PRN (15:58)
[2017-10-03] MEDS ORDERED: FAMOTIDINE 20 MG TABLET PO PRN (15:58)
[2017-10-03 18:29] LABS: Basophils % 0.4 % (0.0-0.8); Eosinophils # 0.1 10*3/uL (0.0-0.87); Eosinophils % 1.2 % (0.00-10.9); Hematocrit 39.7 VOL% (42.0-52.0); Hemoglobin 14.1 GM/DL (14.0-18.0); Immature Granulocytes % 0.3 %; Immature Granulocytes Absolute 0.03 #; Lymphocytes # 2.6 10*3/uL (1.4-4.0); Lymphocytes % 26.5 % (21.2-54.2); Mean Corpuscular HGB Conc 35.5 GM/DL (32-36); Mean Corpuscular Hemoglobin 32 PG (27-34); Mean Corpuscular Volume 89.2 FL (87-102); Mean Platelet Volume 11.4 FL (9.6-12.0); Monocytes # 0.8 10*3/uL (0.11-0.8); Monocytes % 7.7 % (1.7-12.7); Neutrophils # 6.3 10*3/uL (1.4-7.4); Neutrophils % 63.9 % (38.7-73.9); Platelet Count 192 T/CUMM (130-400); Red Blood Count 4.45 MC/CUMM (3.8-5.5); Red Cell Distribution Width 12.9 % (9.3-17.3); White Blood Count 9.8 T/CUMM (4-12)
[2017-10-03] MEDS: PANTOPRAZOLE 40 MG TABLET PO SCH (18:29)
[2017-10-03] MEDS: oxyCODONE ER 40 MG TABLET PO PRN (18:31)
[2017-10-03 18:56] LABS: Apearance,Urine CLEAR (Clear); Bilirubin,Urine Negative (Negative); Blood, Urine Small mg/dL (Negative); Glucose,Urine (UA) 150 mg/dL (Negative); Ketones,Urine Negative (Negative); Nitrite,Urine Negative (Negative); Protein,Urine Negative; RBC,Urine <1 /HPF (0-4); Urine Color Straw (Yellow); Urine Specific Gravity 1.006 (1.001-1.035); Urine Urobilinogen < 2.0 EU/DL (0.2-1.0)
[2017-10-03 19:06] LABS: Troponin I Only 0.017 NG/ML (0.00-0.045)
[2017-10-03 19:13] LABS: Albumin 4.1 G/DL (3.4-5.0); Bilirubin,Total 0.6 MG/DL (0.2-1.0); Osmolality,Calculated 279.8 MOS/KG (273-304); Thyroid Stimulating Hormone 2.68 uIU/ml (0.358-3.74); Total Protein 7.6 G/DL (6.4-8.3)
[2017-10-03] MEDS: ACETAMINOPHEN 325 MG TABLET PO PRN (20:41)
[2017-10-03] MEDS: GABAPENTIN 300 MG CAPSULE PO SCH (21:46)
[2017-10-03] MEDS: APIXABAN 2.5 MG TABLET PO SCH (21:46)
[2017-10-03] MEDS: VALSARTAN 80 MG TABLET PO SCH (21:46)
[2017-10-03] MEDS: MAGNESIUM CHLORIDE 64 MG TABLET PO SCH (21:46)
[2017-10-03] MEDS: AMIODARONE 200 MG TABLET PO SCH (21:46)
[2017-10-03 22:35] LABS: Troponin I Only 0.019 NG/ML (0.00-0.045)
[2017-10-04 01:32] LABS: Troponin I Only 0.018 NG/ML (0.00-0.045)
[2017-10-04] MEDS: oxyCODONE ER 40 MG TABLET PO PRN ×3 (03:08→21:44)
[2017-10-04 04:57] LABS: Basophils # 0.1 10*3/uL (0.0-0.2); Basophils % 0.6 % (0.0-0.8); Eosinophils # 0.3 10*3/uL (0.0-0.87); Hematocrit 39.4 VOL% (42.0-52.0); Immature Granulocytes % 0.2 %; Immature Granulocytes Absolute 0.02 #; Lymphocytes # 2.6 10*3/uL (1.4-4.0); Lymphocytes % 31.4 % (21.2-54.2); Mean Corpuscular HGB Conc 35.5 GM/DL (32-36); Mean Corpuscular Hemoglobin 31 PG (27-34); Mean Corpuscular Volume 88.3 FL (87-102); Mean Platelet Volume 11.7 FL (9.6-12.0); Monocytes # 0.8 10*3/uL (0.11-0.8); Monocytes % 9.6 % (1.7-12.7); Neutrophils # 4.6 10*3/uL (1.4-7.4); Neutrophils % 55.2 % (38.7-73.9); Platelet Count 176 T/CUMM (130-400); Red Blood Count 4.46 MC/CUMM (3.8-5.5); White Blood Count 8.3 T/CUMM (4-12)
[2017-10-04] MEDS: LEVOTHYROXINE 50 MCG TABLET PO SCH (05:39)
[2017-10-04 06:06] LABS: Albumin 3.8 G/DL (3.4-5.0); Bilirubin,Total 0.7 MG/DL (0.2-1.0); Calcium 9.1 MG/DL (8.5-10.1); Osmolality,Calculated 284.8 MOS/KG (273-304); Risk Ratio 3.97; Total Protein 7.1 G/DL (6.4-8.3); VLDL CHOLESTEROL 46.2 MG/DL
[2017-10-04] MEDS ORDERED: BISOPROLOL 5 MG TABLET PO SCH (09:00)
[2017-10-04] MEDS: ATORVASTATIN 40 MG TABLET PO SCH (09:55)
[2017-10-04] MEDS: PANTOPRAZOLE 40 MG TABLET PO SCH (09:55)
[2017-10-04] MEDS: MAGNESIUM CHLORIDE 64 MG TABLET PO SCH ×2 (09:55→21:43)
[2017-10-04] MEDS: APIXABAN 2.5 MG TABLET PO SCH ×2 (09:55→21:41)
[2017-10-04] MEDS: CLOPIDOGREL 75 MG TABLET PO SCH (09:55)
[2017-10-04] MEDS: VALSARTAN 80 MG TABLET PO SCH ×2 (09:56→21:40)
[2017-10-04] MEDS: GABAPENTIN 300 MG CAPSULE PO SCH ×3 (09:56→21:42)
[2017-10-04] MEDS: AMIODARONE 200 MG TABLET PO SCH ×2 (09:56→21:40)
[2017-10-05] MEDS: LEVOTHYROXINE 50 MCG TABLET PO SCH (06:31)
[2017-10-05] MEDS: CLOPIDOGREL 75 MG TABLET PO SCH (08:31)
[2017-10-05] MEDS: VALSARTAN 80 MG TABLET PO SCH ×2 (08:32→21:35)
[2017-10-05] MEDS: oxyCODONE ER 40 MG TABLET PO PRN ×3 (08:32→23:59)
[2017-10-05] MEDS: AMIODARONE 200 MG TABLET PO SCH ×2 (08:32→21:35)
[2017-10-05] MEDS: APIXABAN 2.5 MG TABLET PO SCH ×2 (08:33→21:35)
[2017-10-05] MEDS: GABAPENTIN 300 MG CAPSULE PO SCH ×3 (08:33→21:35)
[2017-10-05] MEDS: MAGNESIUM CHLORIDE 64 MG TABLET PO SCH ×2 (08:33→21:34)
[2017-10-05] MEDS: ATORVASTATIN 40 MG TABLET PO SCH (08:33)
[2017-10-05] MEDS: PANTOPRAZOLE 40 MG TABLET PO SCH (08:33)
[2017-10-05] MEDS ORDERED: GLUCAGON 1 MG VIAL IM PRN (17:32)
[2017-10-05] MEDS ORDERED: DEXTROSE 50% 25 GM/50 ML VIAL IV PRN (17:32)
[2017-10-05] MEDS: INSULIN REGULAR 100 UNIT/ML SUBCUT SCH (21:36)
[2017-10-06] MEDS: LEVOTHYROXINE 50 MCG TABLET PO SCH (06:28)
[2017-10-06] MEDS: INSULIN REGULAR 100 UNIT/ML SUBCUT SCH ×4 (08:47→21:30)
[2017-10-06] MEDS: PANTOPRAZOLE 40 MG TABLET PO SCH (08:49)
[2017-10-06] MEDS: AMIODARONE 200 MG TABLET PO SCH ×2 (08:49→21:29)
[2017-10-06] MEDS: MAGNESIUM CHLORIDE 64 MG TABLET PO SCH ×2 (08:49→21:29)
[2017-10-06] MEDS: ATORVASTATIN 40 MG TABLET PO SCH (08:49)
[2017-10-06] MEDS: CLOPIDOGREL 75 MG TABLET PO SCH (08:49)
[2017-10-06] MEDS: GABAPENTIN 300 MG CAPSULE PO SCH ×3 (08:50→21:35)
[2017-10-06] MEDS: oxyCODONE ER 40 MG TABLET PO PRN ×2 (08:50→17:45)
[2017-10-06] MEDS: VALSARTAN 80 MG TABLET PO SCH ×2 (08:50→21:30)
[2017-10-06] MEDS: APIXABAN 2.5 MG TABLET PO SCH ×2 (08:50→21:30)
[2017-10-06] MEDS ORDERED: PROPOFOL 200 MG/20 ML VIAL IV ONE (12:54)
[2017-10-06] MEDS: ACETAMINOPHEN 325 MG TABLET PO PRN (14:49)
[2017-10-06] MEDS ORDERED: guaiFENesin/DM ER 600-30 MG TABLET PO PRN (16:37)
[2017-10-07] MEDS: oxyCODONE ER 40 MG TABLET PO PRN ×2 (00:50→08:37)
[2017-10-07 05:42] LABS: Basophils # 0.1 10*3/uL (0.0-0.2); Basophils % 0.6 % (0.0-0.8); Eosinophils # 0.4 10*3/uL (0.0-0.87); Eosinophils % 5.1 % (0.00-10.9); Hematocrit 37.6 VOL% (42.0-52.0); Hemoglobin 13.4 GM/DL (14.0-18.0); Immature Granulocytes % 0.1 %; Immature Granulocytes Absolute 0.01 #; Lymphocytes # 2.7 10*3/uL (1.4-4.0); Mean Corpuscular HGB Conc 35.6 GM/DL (32-36); Mean Corpuscular Hemoglobin 32 PG (27-34); Mean Corpuscular Volume 88.5 FL (87-102); Mean Platelet Volume 11.5 FL (9.6-12.0); Monocytes % 11.4 % (1.7-12.7); Neutrophils # 4.2 10*3/uL (1.4-7.4); Neutrophils % 50.8 % (38.7-73.9); Platelet Count 170 T/CUMM (130-400); Red Blood Count 4.25 MC/CUMM (3.8-5.5); Red Cell Distribution Width 12.8 % (9.3-17.3); White Blood Count 8.3 T/CUMM (4-12)
[2017-10-07] MEDS: LEVOTHYROXINE 50 MCG TABLET PO SCH (05:53)
[2017-10-07 06:08] LABS: Osmolality,Calculated 276.2 MOS/KG (273-304); Potassium 4.2 MMOL/L (3.5-5.1)
[2017-10-07 08:17] VITALS: BP 132/77
[2017-10-07] MEDS: MAGNESIUM CHLORIDE 64 MG TABLET PO SCH (08:36)
[2017-10-07] MEDS: ATORVASTATIN 40 MG TABLET PO SCH (08:36)
[2017-10-07] MEDS: CLOPIDOGREL 75 MG TABLET PO SCH (08:36)
[2017-10-07] MEDS: GABAPENTIN 300 MG CAPSULE PO SCH (08:36)
[2017-10-07] MEDS: APIXABAN 2.5 MG TABLET PO SCH (08:36)
[2017-10-07] MEDS: VALSARTAN 80 MG TABLET PO SCH (08:36)
[2017-10-07] MEDS: PANTOPRAZOLE 40 MG TABLET PO SCH (08:36)
[2017-10-07] MEDS: INSULIN REGULAR 100 UNIT/ML SUBCUT SCH (08:37)
[2017-10-07] MEDS ORDERED: DILTIAZEM CD 120 MG CAPSULE PO SCH (09:00)
[2017-10-07] MEDS ORDERED: AMIODARONE 200 MG TABLET PO SCH (09:00)
== END 2017-10-07 09:31 | disposition home or self-care (01) | DRG 310 ==
LOC: N.TELEN 17:52
PROVIDERS: ADMIT Internal Medicine Cardiovascular Disease; ATTEND Internal Medicine Cardiovascular Disease

== ENCOUNTER 2019-02-24 14:46 | Observation (INO) ==
[2019-02-24] MEDS ORDERED: MORPHINE 4 MG/1 ML VIAL IV STA (15:11)
[2019-02-24] MEDS ORDERED: NITROGLYCERIN 2% OINT 1 INCH/GM PACK TOP STA (15:11)
[2019-02-24] MEDS ORDERED: ONDANSETRON 4 MG/2 ML VIAL IV STA (15:11)
[2019-02-24 15:21] LABS: Apearance,Urine CLEAR (Clear); Basophils % 0.4 % (0.0-0.8); Bilirubin,Urine Negative (Negative); Blood, Urine Small mg/dL (Negative); Eosinophils # 0.1 10*3/uL (0.0-0.87); Eosinophils % 1.1 % (0.00-10.9); Glucose,Urine (UA) >=500 mg/dL (Negative); Hematocrit 47.1 VOL% (42.0-52.0); Hemoglobin 15.6 GM/DL (14.0-18.0); Immature Granulocytes % 0.4 %; Immature Granulocytes Absolute 0.04 #; Ketones,Urine 5 mg/dL (Negative); Lymphocytes % 20.8 % (21.2-54.2); Mean Corpuscular HGB Conc 33.1 GM/DL (32-36); Mean Corpuscular Volume 93.1 FL (87-102); Mean Platelet Volume 11.6 FL (9.6-12.0); Monocytes % 7.3 % (1.7-12.7); Nitrite,Urine Negative (Negative); Platelet Count 231 T/CUMM (130-400); Protein,Urine Negative; RBC,Urine 2 /HPF (0-4); Red Blood Count 5.06 MC/CUMM (3.8-5.5); Red Cell Distribution Width 13.2 % (9.3-17.3); Squamous Epithelial Cell,Urine Occasional /HPF (0-10); Urine Color Yellow (Yellow); Urine Urobilinogen < 2.0 EU/DL (0.2-1.0); WBC,Urine <1 /HPF (0-6); White Blood Count 9.7 T/CUMM (4-12)
[2019-02-24 15:29] LABS: PT Patient Result 10.8 SECS
[2019-02-24 15:34] LABS: Albumin 4.1 G/DL (3.4-5.0); Bilirubin,Total 0.6 MG/DL (0.2-1.0); Calcium 9.4 MG/DL (8.5-10.1); Osmolality,Calculated 285.2 MOS/KG (273-304); Total Protein 7.5 G/DL (6.4-8.3)
[2019-02-24] MEDS ORDERED: INSULIN REGULAR 100 UNIT/ML SUBCUT STA (15:52)
[2019-02-24] MEDS ORDERED: MORPHINE 4 MG/1 ML VIAL IV PRN (16:10)
[2019-02-24] MEDS ORDERED: INSULIN REGULAR 100 UNIT/ML SUBCUT ONE (16:10)
[2019-02-24] MEDS ORDERED: ONDANSETRON 4 MG/2 ML VIAL IV PRN (16:10)
[2019-02-24 16:36] LABS: Risk Ratio 4.24
[2019-02-24] MEDS: NITROGLYCERIN 2% OINT 1 INCH/GM PACK TOP SCH (18:40)
[2019-02-24] MEDS ORDERED: AMITRIPTYLINE 25 MG TABLET PO PRN (21:11)
[2019-02-24] MEDS: INSULIN REGULAR 100 UNIT/ML SUBCUT SCH (21:30)
[2019-02-24] MEDS: DULoxetine 30 MG CAPSULE PO SCH (22:03)
[2019-02-24] MEDS: LOSARTAN 50 MG TABLET PO SCH (22:03)
[2019-02-24] MEDS: METOPROLOL TARTRATE 25 MG TABLET PO SCH (22:04)
[2019-02-24] MEDS: PREGABALIN 75 MG CAPSULE PO SCH (22:04)
[2019-02-24] MEDS: MAGNESIUM CHLORIDE 64 MG TABLET PO SCH (22:04)
[2019-02-24] MEDS: oxyCODONE/ACETAMINOPHEN 5-325 MG TABLET PO SCH (22:05)
[2019-02-25] MEDS: LEVOTHYROXINE 75 MCG TABLET PO SCH (05:54)
[2019-02-25] MEDS: NITROGLYCERIN 2% OINT 1 INCH/GM PACK TOP SCH ×4 (05:54→17:19)
[2019-02-25] MEDS: oxyCODONE/ACETAMINOPHEN 5-325 MG TABLET PO SCH ×4 (05:57→22:23)
[2019-02-25] MEDS ORDERED: DILTIAZEM CD 240 MG CAPSULE PO SCH (09:00)
[2019-02-25] MEDS ORDERED: ASPIRIN EC 81 MG TABLET PO SCH (09:00)
[2019-02-25] MEDS ORDERED: INSULIN REGULAR 100 UNIT/ML SUBCUT ONE (09:12)
[2019-02-25] MEDS: INSULIN REGULAR 100 UNIT/ML SUBCUT SCH ×4 (09:18→22:22)
[2019-02-25] MEDS: MAGNESIUM CHLORIDE 64 MG TABLET PO SCH ×2 (15:03→22:23)
[2019-02-25] MEDS: CLOPIDOGREL 75 MG TABLET PO SCH (15:03)
[2019-02-25] MEDS: PREGABALIN 75 MG CAPSULE PO SCH ×3 (15:05→22:22)
[2019-02-25] MEDS: ATORVASTATIN 40 MG TABLET PO SCH (15:06)
[2019-02-25] MEDS: METOPROLOL TARTRATE 25 MG TABLET PO SCH ×2 (15:08→22:22)
[2019-02-25] MEDS: DULoxetine 30 MG CAPSULE PO SCH ×2 (15:15→22:21)
[2019-02-25] MEDS: LOSARTAN 50 MG TABLET PO SCH ×2 (15:17→22:21)
[2019-02-25] MEDS ORDERED: DEXTROSE 50% 25 GM/50 ML SYRINGE IV PRN (16:09)
[2019-02-25] MEDS ORDERED: GLUCAGON 1 MG VIAL IM PRN (16:09)
[2019-02-25] MEDS: INSULIN LISPRO 100 UNIT/ML SUBCUT SCH (16:50)
[2019-02-25] MEDS: APIXABAN 5 MG TABLET PO SCH (22:21)
[2019-02-26] MEDS: NITROGLYCERIN 2% OINT 1 INCH/GM PACK TOP SCH ×3 (00:03→12:00)
[2019-02-26] MEDS: LEVOTHYROXINE 75 MCG TABLET PO SCH (05:37)
[2019-02-26 06:06] LABS: Basophils % 0.4 % (0.0-0.8); Eosinophils # 0.3 10*3/uL (0.0-0.87); Eosinophils % 3.4 % (0.00-10.9); Hematocrit 42.2 VOL% (42.0-52.0); Hemoglobin 14.1 GM/DL (14.0-18.0); Immature Granulocytes % 0.3 %; Immature Granulocytes Absolute 0.03 #; Lymphocytes # 2.5 10*3/uL (1.4-4.0); Lymphocytes % 28.5 % (21.2-54.2); Mean Corpuscular HGB Conc 33.4 GM/DL (32-36); Mean Platelet Volume 11.7 FL (9.6-12.0); Monocytes % 10.1 % (1.7-12.7); Neutrophils % 57.3 % (38.7-73.9); Platelet Count 205 T/CUMM (130-400); Red Blood Count 4.54 MC/CUMM (3.8-5.5); Red Cell Distribution Width 13.1 % (9.3-17.3); White Blood Count 8.9 T/CUMM (4-12)
[2019-02-26 06:16] LABS: Calcium 9.1 MG/DL (8.5-10.1); Osmolality,Calculated 277.8 MOS/KG (273-304)
[2019-02-26 07:54] LABS: Free T4 (Free Thyroxine) 0.87 NG/DL (0.76-1.46); Thyroid Stimulating Hormone 2.19 uIU/ml (0.358-3.74)
[2019-02-26] MEDS ORDERED: DRONEDARONE 400 MG TABLET PO SCH (08:00)
[2019-02-26] MEDS: INSULIN REGULAR 100 UNIT/ML SUBCUT SCH ×2 (08:17→12:36)
[2019-02-26] MEDS: INSULIN LISPRO 100 UNIT/ML SUBCUT SCH ×2 (08:18→12:00)
[2019-02-26] MEDS: DULoxetine 30 MG CAPSULE PO SCH (08:20)
[2019-02-26] MEDS: oxyCODONE/ACETAMINOPHEN 5-325 MG TABLET PO SCH ×2 (08:20→15:18)
[2019-02-26] MEDS: PREGABALIN 75 MG CAPSULE PO SCH ×2 (08:20→15:16)
[2019-02-26] MEDS: CLOPIDOGREL 75 MG TABLET PO SCH (08:20)
[2019-02-26] MEDS: LOSARTAN 50 MG TABLET PO SCH (08:20)
[2019-02-26] MEDS: ATORVASTATIN 40 MG TABLET PO SCH (08:21)
[2019-02-26] MEDS: APIXABAN 5 MG TABLET PO SCH (08:21)
[2019-02-26] MEDS: MAGNESIUM CHLORIDE 64 MG TABLET PO SCH (08:21)
[2019-02-26] MEDS ORDERED: INSULIN GLARGINE 100 UNIT/ML SUBCUT SCH (09:00)
[2019-02-26] MEDS ORDERED: METOPROLOL SUCCINATE XL 25 MG TABLET PO SCH (09:00)
[2019-02-26 12:16] VITALS: BP 119/74
== END 2019-02-26 15:46 | disposition home or self-care (01) ==
LOC: EDBD → EDUNIT# → N.EDINP 14:46 → N.ED 14:46 → N.TELEN 19:00
PROVIDERS: ADMIT Internal Medicine; ATTEND Internal Medicine

== ENCOUNTER 2019-10-18 06:00 | Observation (INO) ==
[2019-10-18 07:40] LABS: Basophils # 0.1 10*3/uL (0.0-0.2); Basophils % 0.5 % (0.0-0.8); Eosinophils # 0.3 10*3/uL (0.0-0.87); Eosinophils % 2.8 % (0.00-10.9); Hematocrit 37.7 VOL% (42.0-52.0); Hemoglobin 12.6 GM/DL (14.0-18.0); Immature Granulocytes % 0.3 %; Immature Granulocytes Absolute 0.03 #; Lymphocytes # 2.5 10*3/uL (1.4-4.0); Lymphocytes % 26.8 % (21.2-54.2); Mean Corpuscular HGB Conc 33.4 GM/DL (32-36); Mean Corpuscular Volume 90.8 FL (87-102); Monocytes % 11.6 % (1.7-12.7); Platelet Count 209 T/CUMM (130-400); Red Blood Count 4.15 MC/CUMM (3.8-5.5); Red Cell Distribution Width 13.9 % (9.3-17.3); White Blood Count 9.4 T/CUMM (4-12)
[2019-10-18 08:04] LABS: Calcium 9.1 MG/DL (8.5-10.1); Osmolality,Calculated 283.8 MOS/KG (273-304)
[2019-10-18] MEDS ORDERED: ISOPROTERENOL IV ONE (08:05)
[2019-10-18] MEDS ORDERED: LIDOCAINE 1% 20 ML VIAL ONE (08:14)
[2019-10-18] MEDS ORDERED: HEPARIN/NACL 0.9% 2 UNITS/ML 1,000 ML IV ONE ×2 (08:14)
[2019-10-18] MEDS ORDERED: ceFAZolin 1,000 MG VIAL ONE (08:50)
[2019-10-18 08:58] LABS: Apearance,Urine CLEAR (Clear); Bilirubin,Urine Negative (Negative); Blood, Urine Negative (Negative); Glucose,Urine (UA) >=500 mg/dL (Negative); Ketones,Urine Negative (Negative); Nitrite,Urine Negative (Negative); Protein,Urine Negative; RBC,Urine 1 /HPF (0-4); Squamous Epithelial Cell,Urine Occasional /HPF (0-10); Urine Color Yellow (Yellow); Urine Specific Gravity 1.016 (1.001-1.035); Urine Urobilinogen < 2.0 EU/DL (0.2-1.0)
[2019-10-18] MEDS ORDERED: IBUPROFEN 400 MG TABLET PO PRN (12:31)
[2019-10-18] MEDS ORDERED: DEXTROSE 50% 25 GM/50 ML VIAL IV PRN (12:31)
[2019-10-18] MEDS ORDERED: ONDANSETRON 4 MG/2 ML VIAL IV PRN (12:31)
[2019-10-18] MEDS ORDERED: GLUCAGON 1 MG VIAL IM PRN (12:31)
[2019-10-18] MEDS ORDERED: ZALEPLON 5 MG CAPSULE PO PRN (12:31)
[2019-10-18] MEDS ORDERED: ACETAMINOPHEN 325 MG TABLET PO PRN (12:31)
[2019-10-18] MEDS ORDERED: NITROGLYCERIN SL 0.4 MG TABLET SL PRN (12:33)
[2019-10-18] MEDS ORDERED: FLUTICASONE 50 MCG NASAL SPRAY 16 GM BOTTLE BOTH NARES PRN (12:33)
[2019-10-18] MEDS ORDERED: AMITRIPTYLINE 25 MG TABLET PO PRN (12:33)
[2019-10-18] MEDS ORDERED: oxyCODONE/ACETAMINOPHEN 5-325 MG TABLET PO PRN (12:33)
[2019-10-18] MEDS ORDERED: CETIRIZINE 10 MG TABLET PO PRN (12:33)
[2019-10-18] MEDS ORDERED: ASPIRIN EC 325 MG TABLET PO ONE (13:00)
[2019-10-18] MEDS ORDERED: INFLUENZA VIRUS VACCINE 0.5 ML SYRINGE IM ONE (13:27)
[2019-10-18] MEDS ORDERED: PREGABALIN 75 MG CAPSULE PO PRN (13:30)
[2019-10-18] MEDS ORDERED: PROPOFOL 200 MG/20 ML VIAL IV ONE (13:41)
[2019-10-18] MEDS ORDERED: LIDOCAINE 2% 5 ML VIAL ONE (13:41)
[2019-10-18] MEDS ORDERED: HEPARIN 10,000 UNIT/10 ML VIAL ONE (13:42)
[2019-10-18] MEDS ORDERED: ETOMIDATE 40 MG/20 ML VIAL IV ONE (13:42)
[2019-10-18] MEDS ORDERED: DEXAMETHASONE 4 MG/1 ML VIAL ONE (13:42)
[2019-10-18] MEDS ORDERED: ONDANSETRON 4 MG/2 ML VIAL ONE (13:42)
[2019-10-18] MEDS ORDERED: MIDAZOLAM 2 MG/2 ML VIAL ONE (13:42)
[2019-10-18] MEDS ORDERED: SEVOFLURANE 1 UNIT/15 MINUTE INH ONE (13:42)
[2019-10-18] MEDS ORDERED: PHENYLEPHRINE 10 MG/1 ML VIAL IV ONE (13:42)
[2019-10-18] MEDS ORDERED: fentaNYL 100 MCG/2 ML VIAL ONE (13:42)
[2019-10-18] MEDS ORDERED: ROCURONIUM 100 MG/10 ML VIAL IV ONE (13:43)
[2019-10-18] MEDS ORDERED: PHENYLEPHRINE 1 MG/10 ML SYRINGE IV ONE (13:43)
[2019-10-18] MEDS ORDERED: GLYCOPYRROLATE 0.4 MG/2 ML VIAL ONE ×2 (13:43)
[2019-10-18] MEDS ORDERED: PROTAMINE SULFATE 50 MG/5 ML VIAL IV ONE (13:43)
[2019-10-18] MEDS ORDERED: LACTATED RINGERS 2,000 ML IV ONE (13:44)
[2019-10-18] MEDS ORDERED: NEOSTIGMINE 10 MG/10 ML VIAL ONE (13:44)
[2019-10-18] MEDS: PANTOPRAZOLE 40 MG TABLET PO SCH ×2 (13:59→21:23)
[2019-10-18] MEDS: AMIODARONE 200 MG TABLET PO SCH ×2 (13:59→21:23)
[2019-10-18] MEDS: MAGNESIUM CHLORIDE 64 MG TABLET PO SCH ×2 (13:59→21:23)
[2019-10-18] MEDS: METOPROLOL SUCCINATE XL 100 MG TABLET PO SCH (14:00)
[2019-10-18] MEDS: oxyCODONE/ACETAMINOPHEN 5-325 MG TABLET PO PRN ×2 (14:32→23:04)
[2019-10-18] MEDS: INSULIN LISPRO 100 UNIT/ML SUBCUT SCH ×2 (16:38→21:24)
[2019-10-18] MEDS ORDERED: INSULIN GLARGINE 100 UNIT/ML SUBCUT SCH (21:00)
[2019-10-18] MEDS: DULoxetine 30 MG CAPSULE PO SCH (21:23)
[2019-10-18] MEDS: metFORMIN 500 MG TABLET PO SCH (21:23)
[2019-10-18] MEDS: APIXABAN 5 MG TABLET PO SCH (21:23)
[2019-10-18] MEDS: LOSARTAN 50 MG TABLET PO SCH (21:24)
[2019-10-19 04:43] LABS: Basophils % 0.1 % (0.0-0.8); Hematocrit 32.9 VOL% (42.0-52.0); Hemoglobin 10.9 GM/DL (14.0-18.0); Immature Granulocytes % 0.4 %; Immature Granulocytes Absolute 0.05 #; Lymphocytes # 1.2 10*3/uL (1.4-4.0); Lymphocytes % 10.2 % (21.2-54.2); Mean Corpuscular HGB Conc 33.1 GM/DL (32-36); Mean Corpuscular Volume 90.9 FL (87-102); Mean Platelet Volume 11.6 FL (9.6-12.0); Monocytes % 8.3 % (1.7-12.7); Platelet Count 185 T/CUMM (130-400); Red Blood Count 3.62 MC/CUMM (3.8-5.5); White Blood Count 12.1 T/CUMM (4-12)
[2019-10-19 05:01] LABS: Calcium 8.9 MG/DL (8.5-10.1); Osmolality,Calculated 279.1 MOS/KG (273-304)
[2019-10-19] MEDS: LEVOTHYROXINE 75 MCG TABLET PO SCH (05:48)
[2019-10-19] MEDS: metFORMIN 500 MG TABLET PO SCH ×2 (08:54→21:31)
[2019-10-19] MEDS: DULoxetine 30 MG CAPSULE PO SCH ×2 (08:55→21:31)
[2019-10-19] MEDS: AMIODARONE 200 MG TABLET PO SCH ×2 (08:55→21:32)
[2019-10-19] MEDS: METOPROLOL SUCCINATE XL 100 MG TABLET PO SCH (08:55)
[2019-10-19] MEDS: MAGNESIUM CHLORIDE 64 MG TABLET PO SCH ×2 (08:55→21:31)
[2019-10-19] MEDS: APIXABAN 5 MG TABLET PO SCH ×2 (08:55→21:32)
[2019-10-19] MEDS: LOSARTAN 50 MG TABLET PO SCH ×2 (08:55→21:32)
[2019-10-19] MEDS: ATORVASTATIN 40 MG TABLET PO SCH (08:55)
[2019-10-19] MEDS: INSULIN LISPRO 100 UNIT/ML SUBCUT SCH ×3 (08:56→21:32)
[2019-10-19] MEDS: PANTOPRAZOLE 40 MG TABLET PO SCH ×2 (08:56→21:31)
[2019-10-19] MEDS: CLOPIDOGREL 75 MG TABLET PO SCH (08:56)
[2019-10-19] MEDS ORDERED: ASPIRIN EC 81 MG TABLET PO SCH (09:00)
[2019-10-19] MEDS: oxyCODONE/ACETAMINOPHEN 5-325 MG TABLET PO PRN ×2 (09:10→16:41)
[2019-10-19] MEDS ORDERED: AZITHROMYCIN 250 MG TABLET PO ONE (10:11)
[2019-10-19] MEDS ORDERED: guaiFENesin 200 MG/10 ML UDCUP PO PRN (11:19)
[2019-10-19] MEDS: PREGABALIN 75 MG CAPSULE PO SCH (21:31)
[2019-10-19] MEDS: AMITRIPTYLINE 25 MG TABLET PO SCH (21:31)
[2019-10-19] MEDS: INSULIN GLARGINE 100 UNIT/ML SUBCUT SCH (21:32)
[2019-10-20] MEDS: oxyCODONE/ACETAMINOPHEN 5-325 MG TABLET PO PRN ×3 (03:52→22:35)
[2019-10-20 04:45] LABS: Basophils % 0.3 % (0.0-0.8); Eosinophils # 0.2 10*3/uL (0.0-0.87); Eosinophils % 1.4 % (0.00-10.9); Hematocrit 34.6 VOL% (42.0-52.0); Immature Granulocytes % 0.2 %; Immature Granulocytes Absolute 0.02 #; Lymphocytes # 2.2 10*3/uL (1.4-4.0); Lymphocytes % 21.4 % (21.2-54.2); Mean Corpuscular HGB Conc 31.8 GM/DL (32-36); Mean Corpuscular Volume 94.5 FL (87-102); Mean Platelet Volume 11.4 FL (9.6-12.0); Monocytes % 10.7 % (1.7-12.7); Platelet Count 190 T/CUMM (130-400); Red Blood Count 3.66 MC/CUMM (3.8-5.5); Red Cell Distribution Width 14.2 % (9.3-17.3); White Blood Count 10.5 T/CUMM (4-12)
[2019-10-20 05:10] LABS: Calcium 8.7 MG/DL (8.5-10.1); Osmolality,Calculated 280.5 MOS/KG (273-304)
[2019-10-20] MEDS: LEVOTHYROXINE 75 MCG TABLET PO SCH (05:42)
[2019-10-20] MEDS ORDERED: FUROSEMIDE 40 MG TABLET PO ONE (07:49)
[2019-10-20] MEDS ORDERED: MAGNESIUM SULF RIDER 2 GM in PREMIX 1 EACH IV ONE (07:50)
[2019-10-20] MEDS: INSULIN LISPRO 100 UNIT/ML SUBCUT SCH ×3 (08:32→21:18)
[2019-10-20] MEDS: metFORMIN 500 MG TABLET PO SCH ×2 (08:32→21:11)
[2019-10-20] MEDS: DULoxetine 30 MG CAPSULE PO SCH ×2 (08:32→21:11)
[2019-10-20] MEDS: AMIODARONE 200 MG TABLET PO SCH ×2 (08:34→21:11)
[2019-10-20] MEDS: AZITHROMYCIN 250 MG TABLET PO SCH (08:35)
[2019-10-20] MEDS: PREGABALIN 75 MG CAPSULE PO SCH ×3 (08:35→21:11)
[2019-10-20] MEDS: CLOPIDOGREL 75 MG TABLET PO SCH (08:35)
[2019-10-20] MEDS: METOPROLOL SUCCINATE XL 100 MG TABLET PO SCH (08:35)
[2019-10-20] MEDS: LOSARTAN 50 MG TABLET PO SCH ×2 (08:35→21:12)
[2019-10-20] MEDS: MAGNESIUM CHLORIDE 64 MG TABLET PO SCH ×2 (08:35→22:36)
[2019-10-20] MEDS: APIXABAN 5 MG TABLET PO SCH ×2 (08:35→21:15)
[2019-10-20] MEDS: PANTOPRAZOLE 40 MG TABLET PO SCH ×2 (08:36→22:36)
[2019-10-20] MEDS: ATORVASTATIN 40 MG TABLET PO SCH (08:36)
[2019-10-20] MEDS ORDERED: MAGNESIUM HYDROXIDE SUSP 30 ML UDCUP PO PRN (16:27)
[2019-10-20] MEDS ORDERED: diphenhydrAMINE CAP 25 MG CAPSULE PO PRN (16:27)
[2019-10-20] MEDS: ALBUTEROL 1.25 MG/3 ML NEB RESP TX SCH (20:04)
[2019-10-20] MEDS: AMITRIPTYLINE 25 MG TABLET PO SCH (21:12)
[2019-10-20] MEDS: INSULIN GLARGINE 100 UNIT/ML SUBCUT SCH (21:12)
[2019-10-21] MEDS: ALBUTEROL 1.25 MG/3 ML NEB RESP TX SCH ×3 (00:33→12:53)
[2019-10-21 04:56] LABS: Basophils % 0.4 % (0.0-0.8); Eosinophils # 0.3 10*3/uL (0.0-0.87); Eosinophils % 3.5 % (0.00-10.9); Hematocrit 34.5 VOL% (42.0-52.0); Hemoglobin 11.4 GM/DL (14.0-18.0); Immature Granulocytes % 0.2 %; Immature Granulocytes Absolute 0.02 #; Lymphocytes # 2.6 10*3/uL (1.4-4.0); Mean Corpuscular Volume 93.5 FL (87-102); Mean Platelet Volume 11.2 FL (9.6-12.0); Monocytes % 13.6 % (1.7-12.7); Neutrophils % 54.3 % (38.7-73.9); Platelet Count 188 T/CUMM (130-400); Red Blood Count 3.69 MC/CUMM (3.8-5.5); White Blood Count 9.2 T/CUMM (4-12)
[2019-10-21 05:12] LABS: Calcium 9.5 MG/DL (8.5-10.1); Osmolality,Calculated 274.8 MOS/KG (273-304)
[2019-10-21] MEDS: LEVOTHYROXINE 75 MCG TABLET PO SCH (06:20)
[2019-10-21] MEDS: INSULIN LISPRO 100 UNIT/ML SUBCUT SCH ×2 (08:17→16:16)
[2019-10-21] MEDS: oxyCODONE/ACETAMINOPHEN 5-325 MG TABLET PO PRN ×2 (08:18→16:11)
[2019-10-21] MEDS: DULoxetine 30 MG CAPSULE PO SCH (08:18)
[2019-10-21] MEDS: PANTOPRAZOLE 40 MG TABLET PO SCH (08:19)
[2019-10-21] MEDS: AZITHROMYCIN 250 MG TABLET PO SCH (08:19)
[2019-10-21] MEDS: PREGABALIN 75 MG CAPSULE PO SCH ×2 (08:19→16:10)
[2019-10-21] MEDS: METOPROLOL SUCCINATE XL 100 MG TABLET PO SCH (08:19)
[2019-10-21] MEDS: AMIODARONE 200 MG TABLET PO SCH (08:19)
[2019-10-21] MEDS: metFORMIN 500 MG TABLET PO SCH (08:19)
[2019-10-21] MEDS: ATORVASTATIN 40 MG TABLET PO SCH (08:19)
[2019-10-21] MEDS: APIXABAN 5 MG TABLET PO SCH (08:19)
[2019-10-21] MEDS: LOSARTAN 50 MG TABLET PO SCH (08:19)
[2019-10-21] MEDS: CLOPIDOGREL 75 MG TABLET PO SCH (08:19)
[2019-10-21] MEDS: MAGNESIUM CHLORIDE 64 MG TABLET PO SCH (08:19)
[2019-10-21 13:03] VITALS: BP 140/81
== END 2019-10-21 16:34 | disposition home or self-care (01) ==
LOC: N.TELES 06:00 → N.CL 06:00 → N.TELES 13:07
PROVIDERS: ADMIT Internal Medicine Clinical Cardiac Electrophysiology; ATTEND Internal Medicine Clinical Cardiac Electrophysiology

== ENCOUNTER 2019-11-02 12:03 | Inpatient (IN) ==
[2019-11-02 12:35] LABS: Basophils # 0.1 10*3/uL (0.0-0.2); Basophils % 0.6 % (0.0-0.8); Eosinophils # 0.9 10*3/uL (0.0-0.87); Eosinophils % 7.3 % (0.00-10.9); Hematocrit 45.5 VOL% (42.0-52.0); Hemoglobin 15.3 GM/DL (14.0-18.0); Immature Granulocytes % 0.3 %; Immature Granulocytes Absolute 0.04 #; Lymphocytes # 2.1 10*3/uL (1.4-4.0); Lymphocytes % 17.9 % (21.2-54.2); Mean Corpuscular HGB Conc 33.6 GM/DL (32-36); Neutrophils % 66.9 % (38.7-73.9); Platelet Count 292 T/CUMM (130-400); Red Cell Distribution Width 13.9 % (9.3-17.3); White Blood Count 11.9 T/CUMM (4-12)
[2019-11-02 12:42] LABS: INR 1.2; PT Patient Result 12.6 SECS (9.6-12.2); Partial Thromboplastin Time 32.9 SECS (20.8-36.0)
[2019-11-02 12:50] LABS: Calcium 9.1 MG/DL (8.5-10.1); Osmolality,Calculated 282.8 MOS/KG (273-304)
[2019-11-02 14:21] LABS: Apearance,Urine CLEAR (Clear); Bilirubin,Urine Negative (Negative); Blood, Urine Small mg/dL (Negative); Glucose,Urine (UA) 50 mg/dL (Negative); Hyaline Casts,Urine 5 /LPF (0-3); Ketones,Urine Negative (Negative); Mucus,Urine Occasional /LPF (Occasional); Nitrite,Urine Negative (Negative); Protein,Urine Negative; RBC,Urine 1 /HPF (0-4); Squamous Epithelial Cell,Urine Occasional /HPF (0-10); Urine Color Yellow (Yellow); Urine Specific Gravity 1.014 (1.001-1.035); Urine Urobilinogen < 2.0 EU/DL (0.2-1.0); WBC,Urine <1 /HPF (0-6)
[2019-11-02] MEDS ORDERED: BISACODYL 5 MG TABLET PO PRN (14:53)
[2019-11-02] MEDS ORDERED: guaiFENesin/DM ER 600-30 MG TABLET PO PRN (14:53)
[2019-11-02] MEDS ORDERED: DEXTROSE 50% 25 GM/50 ML VIAL IV PRN (14:53)
[2019-11-02] MEDS ORDERED: ONDANSETRON 4 MG/2 ML VIAL IV PRN (14:53)
[2019-11-02] MEDS ORDERED: GLUCAGON 1 MG VIAL IM PRN (14:53)
[2019-11-02] MEDS ORDERED: FLUTICASONE 50 MCG NASAL SPRAY 16 GM BOTTLE BOTH NARES PRN (14:56)
[2019-11-02 15:40] LABS: Thyroid Stimulating Hormone 6.29 uIU/ml (0.358-3.74)
[2019-11-02] MEDS ORDERED: MAGNESIUM SULF RIDER 4 GM in PREMIX 1 EACH IV PRN (15:45)
[2019-11-02] MEDS ORDERED: PREGABALIN 75 MG CAPSULE ONE ×2 (16:10→16:14)
[2019-11-02] MEDS: PREGABALIN 75 MG CAPSULE PO SCH ×2 (16:16→21:59)
[2019-11-02] MEDS: INSULIN REGULAR 100 UNIT/ML SUBCUT SCH (16:31)
[2019-11-02] MEDS ORDERED: LACTULOSE 20 GM/30 ML UDCUP PO PRN (17:00)
[2019-11-02] MEDS ORDERED: ALBUTEROL 2.5 MG/3 ML NEB RESP TX PRN (17:00)
[2019-11-02] MEDS: oxyCODONE/ACETAMINOPHEN 5-325 MG TABLET PO PRN (17:53)
[2019-11-02] MEDS: MAGNESIUM CHLORIDE 64 MG TABLET PO SCH (21:59)
[2019-11-02] MEDS: INSULIN GLARGINE 100 UNIT/ML SUBCUT SCH (21:59)
[2019-11-02] MEDS: LOSARTAN 50 MG TABLET PO SCH (22:00)
[2019-11-02] MEDS: APIXABAN 5 MG TABLET PO SCH (22:00)
[2019-11-02] MEDS: AMITRIPTYLINE 25 MG TABLET PO SCH (22:00)
[2019-11-02] MEDS: DOCUSATE SODIUM 100 MG CAPSULE PO SCH (22:00)
[2019-11-03] MEDS: INSULIN REGULAR 100 UNIT/ML SUBCUT SCH ×5 (00:42→20:45)
[2019-11-03] MEDS: oxyCODONE/ACETAMINOPHEN 5-325 MG TABLET PO PRN ×3 (01:50→19:21)
[2019-11-03] MEDS: LEVOTHYROXINE 75 MCG TABLET PO SCH (05:51)
[2019-11-03 08:51] LABS: Calcium 9.1 MG/DL (8.5-10.1); Osmolality,Calculated 278.7 MOS/KG (273-304)
[2019-11-03] MEDS ORDERED: AMIODARONE 200 MG TABLET PO SCH (09:00)
[2019-11-03] MEDS: APIXABAN 5 MG TABLET PO SCH ×2 (09:50→20:43)
[2019-11-03] MEDS: LOSARTAN 50 MG TABLET PO SCH (09:50)
[2019-11-03] MEDS: MAGNESIUM CHLORIDE 64 MG TABLET PO SCH ×2 (09:51→20:43)
[2019-11-03] MEDS: ATORVASTATIN 40 MG TABLET PO SCH (09:51)
[2019-11-03] MEDS: CLOPIDOGREL 75 MG TABLET PO SCH (09:51)
[2019-11-03] MEDS: PREGABALIN 75 MG CAPSULE PO SCH ×3 (09:51→20:43)
[2019-11-03] MEDS: PANTOPRAZOLE 40 MG TABLET PO SCH (09:51)
[2019-11-03] MEDS: METOPROLOL SUCCINATE XL 100 MG TABLET PO SCH (09:51)
[2019-11-03] MEDS: MAGNESIUM SULF RIDER 2 GM in PREMIX 1 EACH IV PRN (09:52)
[2019-11-03] MEDS ORDERED: MAGNESIUM SULF RIDER 2 GM in PREMIX 1 EACH IV ONE (10:13)
[2019-11-03] MEDS ORDERED: AMIODARONE INJ 450 MG in DEXTROSE 5% 241 ML IV SCH (14:00)
[2019-11-03] MEDS: SODIUM CHLORIDE 0.9% 1,000 ML IV SCH (19:21)
[2019-11-03] MEDS: DOCUSATE SODIUM 100 MG CAPSULE PO SCH (20:43)
[2019-11-03] MEDS: AMITRIPTYLINE 25 MG TABLET PO SCH (20:43)
[2019-11-03] MEDS: INSULIN GLARGINE 100 UNIT/ML SUBCUT SCH (20:44)
[2019-11-03] MEDS: AMIODARONE INJ 450 MG in DEXTROSE 5% 241 ML IV SCH (23:05)
[2019-11-04] MEDS: oxyCODONE/ACETAMINOPHEN 5-325 MG TABLET PO PRN ×2 (03:28→23:06)
[2019-11-04 05:36] LABS: Calcium 9.1 MG/DL (8.5-10.1); Osmolality,Calculated 286.3 MOS/KG (273-304)
[2019-11-04] MEDS: LEVOTHYROXINE 75 MCG TABLET PO SCH (06:10)
[2019-11-04] MEDS ORDERED: LOSARTAN 50 MG TABLET PO SCH (09:00)
[2019-11-04] MEDS: PREGABALIN 75 MG CAPSULE PO SCH ×3 (09:24→20:59)
[2019-11-04] MEDS: APIXABAN 5 MG TABLET PO SCH ×2 (09:24→20:59)
[2019-11-04] MEDS: ATORVASTATIN 40 MG TABLET PO SCH (09:24)
[2019-11-04] MEDS: INSULIN REGULAR 100 UNIT/ML SUBCUT SCH ×4 (09:24→20:59)
[2019-11-04] MEDS: METOPROLOL SUCCINATE XL 100 MG TABLET PO SCH (09:25)
[2019-11-04] MEDS: CLOPIDOGREL 75 MG TABLET PO SCH (09:25)
[2019-11-04] MEDS: MAGNESIUM CHLORIDE 64 MG TABLET PO SCH ×2 (09:25→20:58)
[2019-11-04] MEDS: PANTOPRAZOLE 40 MG TABLET PO SCH (09:25)
[2019-11-04] MEDS: SODIUM CHLORIDE 0.9% 1,000 ML IV SCH (15:24)
[2019-11-04] MEDS ORDERED: guaiFENesin 200 MG/10 ML UDCUP PO PRN (15:35)
[2019-11-04] MEDS: AMIODARONE INJ 450 MG in DEXTROSE 5% 241 ML IV SCH (15:57)
[2019-11-04] MEDS: MAGNESIUM SULF RIDER 2 GM in PREMIX 1 EACH IV PRN (16:05)
[2019-11-04] MEDS: AMIODARONE 200 MG TABLET PO SCH (20:58)
[2019-11-04] MEDS: AMITRIPTYLINE 25 MG TABLET PO SCH (20:58)
[2019-11-04] MEDS: INSULIN GLARGINE 100 UNIT/ML SUBCUT SCH (20:59)
[2019-11-04] MEDS: DOCUSATE SODIUM 100 MG CAPSULE PO SCH (20:59)
[2019-11-04] MEDS ORDERED: AMIODARONE 200 MG TABLET PO SCH (21:00)
[2019-11-05 04:48] LABS: Basophils # 0.1 10*3/uL (0.0-0.2); Basophils % 0.8 % (0.0-0.8); Eosinophils # 1.2 10*3/uL (0.0-0.87); Eosinophils % 9.3 % (0.00-10.9); Hematocrit 41.5 VOL% (42.0-52.0); Immature Granulocytes % 0.7 %; Immature Granulocytes Absolute 0.09 #; Lymphocytes # 3.5 10*3/uL (1.4-4.0); Lymphocytes % 26.1 % (21.2-54.2); Mean Corpuscular HGB Conc 33.7 GM/DL (32-36); Mean Corpuscular Volume 89.1 FL (87-102); Mean Platelet Volume 11.6 FL (9.6-12.0); Monocytes % 9.1 % (1.7-12.7); Platelet Count 264 T/CUMM (130-400); Red Blood Count 4.66 MC/CUMM (3.8-5.5); Red Cell Distribution Width 14.1 % (9.3-17.3); White Blood Count 13.3 T/CUMM (4-12)
[2019-11-05 05:22] LABS: Calcium 9.5 MG/DL (8.5-10.1); Osmolality,Calculated 285.3 MOS/KG (273-304)
[2019-11-05] MEDS: LEVOTHYROXINE 75 MCG TABLET PO SCH (06:06)
[2019-11-05] MEDS: INSULIN REGULAR 100 UNIT/ML SUBCUT SCH ×4 (08:48→21:21)
[2019-11-05] MEDS: APIXABAN 5 MG TABLET PO SCH ×2 (08:49→21:21)
[2019-11-05] MEDS: METOPROLOL SUCCINATE XL 100 MG TABLET PO SCH (08:49)
[2019-11-05] MEDS: AMIODARONE 200 MG TABLET PO SCH ×2 (08:49→21:20)
[2019-11-05] MEDS: MAGNESIUM CHLORIDE 64 MG TABLET PO SCH ×2 (08:49→21:21)
[2019-11-05] MEDS: PREGABALIN 75 MG CAPSULE PO SCH ×3 (08:51→21:21)
[2019-11-05] MEDS: CLOPIDOGREL 75 MG TABLET PO SCH (08:51)
[2019-11-05] MEDS: ATORVASTATIN 40 MG TABLET PO SCH (08:51)
[2019-11-05] MEDS: PANTOPRAZOLE 40 MG TABLET PO SCH (08:51)
[2019-11-05] MEDS: ACETAMINOPHEN 325 MG TABLET PO PRN (09:57)
[2019-11-05] MEDS ORDERED: propofoL 200 MG/20 ML VIAL IV ONE (12:07)
[2019-11-05] MEDS ORDERED: LIDOCAINE 2% 5 ML VIAL ONE (12:07)
[2019-11-05] MEDS ORDERED: AMIODARONE INJ 150 MG in DEXTROSE 5% 100 ML IV ONE (12:40)
[2019-11-05] MEDS ORDERED: AMIODARONE INJ 450 MG in DEXTROSE 5% 241 ML IV SCH (13:00)
[2019-11-05] MEDS ORDERED: AMIODARONE 150 MG/3 ML VIAL ONE ×2 (13:12→13:32)
[2019-11-05] MEDS ORDERED: METOPROLOL TARTRATE 5 MG/5 ML VIAL IV ONE (13:12)
[2019-11-05] MEDS: oxyCODONE/ACETAMINOPHEN 5-325 MG TABLET PO PRN (15:56)
[2019-11-05] MEDS: AMIODARONE INJ 450 MG in DEXTROSE 5% 241 ML IV SCH (21:18)
[2019-11-05] MEDS: DOCUSATE SODIUM 100 MG CAPSULE PO SCH (21:20)
[2019-11-05] MEDS: AMITRIPTYLINE 25 MG TABLET PO SCH (21:21)
[2019-11-05] MEDS: INSULIN GLARGINE 100 UNIT/ML SUBCUT SCH (21:21)
[2019-11-06] MEDS: oxyCODONE/ACETAMINOPHEN 5-325 MG TABLET PO PRN ×3 (00:01→20:14)
[2019-11-06 05:41] LABS: Basophils # 0.1 10*3/uL (0.0-0.2); Basophils % 1.1 % (0.0-0.8); Eosinophils # 0.6 10*3/uL (0.0-0.87); Eosinophils % 7.1 % (0.00-10.9); Hematocrit 37.7 VOL% (42.0-52.0); Hemoglobin 12.6 GM/DL (14.0-18.0); Immature Granulocytes % 0.2 %; Immature Granulocytes Absolute 0.02 #; Lymphocytes # 2.8 10*3/uL (1.4-4.0); Lymphocytes % 30.8 % (21.2-54.2); Mean Corpuscular HGB Conc 33.4 GM/DL (32-36); Mean Corpuscular Volume 90.6 FL (87-102); Mean Platelet Volume 11.5 FL (9.6-12.0); Monocytes % 10.7 % (1.7-12.7); Neutrophils % 50.1 % (38.7-73.9); Platelet Count 232 T/CUMM (130-400); Red Blood Count 4.16 MC/CUMM (3.8-5.5); Red Cell Distribution Width 14.1 % (9.3-17.3)
[2019-11-06 05:55] LABS: Calcium 8.7 MG/DL (8.5-10.1); Osmolality,Calculated 277.7 MOS/KG (273-304)
[2019-11-06] MEDS: LEVOTHYROXINE 75 MCG TABLET PO SCH (06:08)
[2019-11-06] MEDS: INSULIN REGULAR 100 UNIT/ML SUBCUT SCH ×4 (07:35→22:04)
[2019-11-06] MEDS: MAGNESIUM CHLORIDE 64 MG TABLET PO SCH ×2 (09:11→22:01)
[2019-11-06] MEDS: PANTOPRAZOLE 40 MG TABLET PO SCH (09:11)
[2019-11-06] MEDS: AMIODARONE 200 MG TABLET PO SCH ×2 (09:11→21:59)
[2019-11-06] MEDS: METOPROLOL SUCCINATE XL 100 MG TABLET PO SCH (09:11)
[2019-11-06] MEDS: PREGABALIN 75 MG CAPSULE PO SCH ×3 (09:11→22:00)
[2019-11-06] MEDS: CLOPIDOGREL 75 MG TABLET PO SCH (09:12)
[2019-11-06] MEDS: APIXABAN 5 MG TABLET PO SCH ×2 (09:12→22:00)
[2019-11-06] MEDS: ATORVASTATIN 40 MG TABLET PO SCH (09:12)
[2019-11-06] MEDS: guaiFENesin/DM ER 600-30 MG TABLET PO SCH ×2 (11:48→22:01)
[2019-11-06] MEDS: AMIODARONE INJ 450 MG in DEXTROSE 5% 241 ML IV SCH (14:05)
[2019-11-06] MEDS: DOCUSATE SODIUM 100 MG CAPSULE PO SCH (21:59)
[2019-11-06] MEDS: AMITRIPTYLINE 25 MG TABLET PO SCH (22:00)
[2019-11-06] MEDS: INSULIN GLARGINE 100 UNIT/ML SUBCUT SCH (22:06)
[2019-11-07 05:07] LABS: Basophils # 0.1 10*3/uL (0.0-0.2); Basophils % 1.3 % (0.0-0.8); Eosinophils % 9.8 % (0.00-10.9); Hemoglobin 13.5 GM/DL (14.0-18.0); Immature Granulocytes % 0.3 %; Immature Granulocytes Absolute 0.03 #; Lymphocytes # 2.9 10*3/uL (1.4-4.0); Lymphocytes % 28.8 % (21.2-54.2); Mean Corpuscular HGB Conc 32.9 GM/DL (32-36); Mean Corpuscular Volume 91.3 FL (87-102); Mean Platelet Volume 11.5 FL (9.6-12.0); Monocytes % 9.7 % (1.7-12.7); Neutrophils % 50.1 % (38.7-73.9); Platelet Count 233 T/CUMM (130-400); Red Blood Count 4.49 MC/CUMM (3.8-5.5); Red Cell Distribution Width 14.1 % (9.3-17.3); White Blood Count 10.2 T/CUMM (4-12)
[2019-11-07] MEDS ORDERED: hydrALAZINE 20 MG/1 ML VIAL IV PRN (05:14)
[2019-11-07] MEDS: oxyCODONE/ACETAMINOPHEN 5-325 MG TABLET PO PRN ×3 (05:24→21:18)
[2019-11-07 05:37] LABS: Calcium 9.1 MG/DL (8.5-10.1); Osmolality,Calculated 277.5 MOS/KG (273-304)
[2019-11-07] MEDS: LEVOTHYROXINE 75 MCG TABLET PO SCH (06:16)
[2019-11-07] MEDS: INSULIN REGULAR 100 UNIT/ML SUBCUT SCH ×4 (08:25→21:15)
[2019-11-07] MEDS: CLOPIDOGREL 75 MG TABLET PO SCH (08:58)
[2019-11-07] MEDS: PREGABALIN 75 MG CAPSULE PO SCH ×3 (08:58→21:12)
[2019-11-07] MEDS: APIXABAN 5 MG TABLET PO SCH ×2 (08:58→21:13)
[2019-11-07] MEDS: MAGNESIUM CHLORIDE 64 MG TABLET PO SCH ×2 (08:58→21:13)
[2019-11-07] MEDS: AMIODARONE 200 MG TABLET PO SCH ×2 (08:58→21:12)
[2019-11-07] MEDS: guaiFENesin/DM ER 600-30 MG TABLET PO SCH ×2 (08:58→21:12)
[2019-11-07] MEDS: ATORVASTATIN 40 MG TABLET PO SCH (08:59)
[2019-11-07] MEDS: METOPROLOL SUCCINATE XL 100 MG TABLET PO SCH (08:59)
[2019-11-07] MEDS: PANTOPRAZOLE 40 MG TABLET PO SCH (08:59)
[2019-11-07] MEDS ORDERED: LOSARTAN 25 MG TABLET PO SCH (09:00)
[2019-11-07] MEDS: AMIODARONE INJ 450 MG in DEXTROSE 5% 241 ML IV SCH (16:21)
[2019-11-07] MEDS: DOCUSATE SODIUM 100 MG CAPSULE PO SCH (21:12)
[2019-11-07] MEDS: AMITRIPTYLINE 25 MG TABLET PO SCH (21:13)
[2019-11-07] MEDS: INSULIN GLARGINE 100 UNIT/ML SUBCUT SCH (21:14)
[2019-11-07] MEDS: LOSARTAN 50 MG TABLET PO SCH (21:18)
[2019-11-08 06:01] LABS: Basophils # 0.1 10*3/uL (0.0-0.2); Eosinophils # 1.3 10*3/uL (0.0-0.87); Eosinophils % 13.5 % (0.00-10.9); Hematocrit 40.6 VOL% (42.0-52.0); Hemoglobin 13.6 GM/DL (14.0-18.0); Immature Granulocytes % 0.3 %; Immature Granulocytes Absolute 0.03 #; Lymphocytes # 2.8 10*3/uL (1.4-4.0); Mean Corpuscular HGB Conc 33.5 GM/DL (32-36); Mean Corpuscular Volume 91.4 FL (87-102); Mean Platelet Volume 11.7 FL (9.6-12.0); Monocytes % 9.5 % (1.7-12.7); Neutrophils % 46.7 % (38.7-73.9); Platelet Count 223 T/CUMM (130-400); Red Blood Count 4.44 MC/CUMM (3.8-5.5); Red Cell Distribution Width 13.9 % (9.3-17.3); White Blood Count 9.7 T/CUMM (4-12)
[2019-11-08 06:19] LABS: Calcium 9.2 MG/DL (8.5-10.1); Osmolality,Calculated 278.5 MOS/KG (273-304)
[2019-11-08 06:33] LABS: Band Neutrophils 1 % (0-10); Eosinophils 17 % (0-10); Hypochromasia 1+; Lymphocytes 27 % (20-55); Microcytosis Slight; Ovalocytes Slight; Platelet Estimate Normal; Segmented Neutrophils 43 % (50-85); Total Cells Counted 100
[2019-11-08] MEDS: LEVOTHYROXINE 88 MCG TABLET PO SCH (06:34)
[2019-11-08] MEDS: oxyCODONE/ACETAMINOPHEN 5-325 MG TABLET PO PRN ×3 (06:52→21:20)
[2019-11-08] MEDS: AMIODARONE 200 MG TABLET PO SCH ×2 (09:13→21:21)
[2019-11-08] MEDS: PREGABALIN 75 MG CAPSULE PO SCH ×3 (09:13→21:21)
[2019-11-08] MEDS: LOSARTAN 50 MG TABLET PO SCH ×2 (09:13→21:20)
[2019-11-08] MEDS: APIXABAN 5 MG TABLET PO SCH ×2 (09:14→21:21)
[2019-11-08] MEDS: PANTOPRAZOLE 40 MG TABLET PO SCH (09:14)
[2019-11-08] MEDS: METOPROLOL SUCCINATE XL 100 MG TABLET PO SCH (09:14)
[2019-11-08] MEDS: MAGNESIUM CHLORIDE 64 MG TABLET PO SCH ×2 (09:14→21:20)
[2019-11-08] MEDS: CLOPIDOGREL 75 MG TABLET PO SCH (09:14)
[2019-11-08] MEDS: guaiFENesin/DM ER 600-30 MG TABLET PO SCH ×2 (09:14→21:21)
[2019-11-08] MEDS: ATORVASTATIN 40 MG TABLET PO SCH (09:14)
[2019-11-08] MEDS: INSULIN REGULAR 100 UNIT/ML SUBCUT SCH ×4 (09:44→21:19)
[2019-11-08] MEDS: POTASSIUM CHLORIDE 20 MEQ TABLET PO PRN ×3 (12:46→17:06)
[2019-11-08] MEDS: INSULIN GLARGINE 100 UNIT/ML SUBCUT SCH (21:20)
[2019-11-08] MEDS: DOCUSATE SODIUM 100 MG CAPSULE PO SCH (21:21)
[2019-11-08] MEDS: AMITRIPTYLINE 25 MG TABLET PO SCH (21:21)
[2019-11-09] MEDS: ACETAMINOPHEN 325 MG TABLET PO PRN (02:25)
[2019-11-09] MEDS: LEVOTHYROXINE 88 MCG TABLET PO SCH (05:35)
[2019-11-09] MEDS ORDERED: MAGNESIUM CITRATE 300 ML BOTTLE PO ONE (08:31)
[2019-11-09] MEDS: oxyCODONE/ACETAMINOPHEN 5-325 MG TABLET PO PRN ×2 (09:26→19:21)
[2019-11-09] MEDS: METOPROLOL SUCCINATE XL 100 MG TABLET PO SCH (09:27)
[2019-11-09] MEDS: PREGABALIN 75 MG CAPSULE PO SCH ×3 (09:27→21:23)
[2019-11-09] MEDS: MAGNESIUM CHLORIDE 64 MG TABLET PO SCH ×2 (09:27→21:24)
[2019-11-09] MEDS: ATORVASTATIN 40 MG TABLET PO SCH (09:27)
[2019-11-09] MEDS: CLOPIDOGREL 75 MG TABLET PO SCH (09:28)
[2019-11-09] MEDS: guaiFENesin/DM ER 600-30 MG TABLET PO SCH ×2 (09:28→21:24)
[2019-11-09] MEDS: APIXABAN 5 MG TABLET PO SCH ×2 (09:28→21:24)
[2019-11-09] MEDS: PANTOPRAZOLE 40 MG TABLET PO SCH (09:28)
[2019-11-09] MEDS: AMIODARONE 200 MG TABLET PO SCH ×2 (09:28→21:23)
[2019-11-09] MEDS: LOSARTAN 50 MG TABLET PO SCH ×2 (09:29→21:24)
[2019-11-09] MEDS: NYSTATIN 500,000 UNIT/5 ML UDCUP SWISH/SWAL SCH ×4 (09:30→21:12)
[2019-11-09] MEDS: INSULIN REGULAR 100 UNIT/ML SUBCUT SCH ×4 (09:30→21:23)
[2019-11-09] MEDS: ALBUTEROL/IPRATROPIUM 3 ML NEB RESP TX SCH ×2 (13:48→20:31)
[2019-11-09] MEDS ORDERED: MECLIZINE 25 MG TABLET PO PRN (15:48)
[2019-11-09] MEDS: INSULIN GLARGINE 100 UNIT/ML SUBCUT SCH (21:23)
[2019-11-09] MEDS: AMITRIPTYLINE 25 MG TABLET PO SCH (21:23)
[2019-11-09] MEDS: DOCUSATE SODIUM 100 MG CAPSULE PO SCH (21:24)
[2019-11-10] MEDS: ALBUTEROL/IPRATROPIUM 3 ML NEB RESP TX SCH ×3 (00:42→13:08)
[2019-11-10] MEDS: oxyCODONE/ACETAMINOPHEN 5-325 MG TABLET PO PRN (04:09)
[2019-11-10 05:28] LABS: Basophils # 0.1 10*3/uL (0.0-0.2); Basophils % 1.2 % (0.0-0.8); Eosinophils % 12.2 % (0.00-10.9); Hematocrit 38.6 VOL% (42.0-52.0); Hemoglobin 12.8 GM/DL (14.0-18.0); Immature Granulocytes % 0.2 %; Immature Granulocytes Absolute 0.02 #; Lymphocytes # 2.3 10*3/uL (1.4-4.0); Lymphocytes % 26.8 % (21.2-54.2); Mean Corpuscular HGB Conc 33.2 GM/DL (32-36); Mean Corpuscular Volume 91.7 FL (87-102); Mean Platelet Volume 11.7 FL (9.6-12.0); Monocytes % 9.8 % (1.7-12.7); Neutrophils % 49.8 % (38.7-73.9); Platelet Count 203 T/CUMM (130-400); Red Blood Count 4.21 MC/CUMM (3.8-5.5); White Blood Count 8.5 T/CUMM (4-12)
[2019-11-10 05:45] LABS: Calcium 8.7 MG/DL (8.5-10.1); Osmolality,Calculated 283.5 MOS/KG (273-304)
[2019-11-10 06:18] LABS: Eosinophils 14 % (0-10); Lymphocytes 23 % (20-55); Segmented Neutrophils 57 % (50-85); Total Cells Counted 100
[2019-11-10 06:19] LABS: Atypical Lymphocytes Few; Hypochromasia 1+; Microcytosis Slight; Platelet Estimate Normal
[2019-11-10] MEDS: LEVOTHYROXINE 88 MCG TABLET PO SCH (06:37)
[2019-11-10] MEDS: AMIODARONE 200 MG TABLET PO SCH (09:29)
[2019-11-10] MEDS: MAGNESIUM CHLORIDE 64 MG TABLET PO SCH (09:29)
[2019-11-10] MEDS: PREGABALIN 75 MG CAPSULE PO SCH ×2 (09:29→14:21)
[2019-11-10] MEDS: APIXABAN 5 MG TABLET PO SCH (09:30)
[2019-11-10] MEDS: ATORVASTATIN 40 MG TABLET PO SCH (09:30)
[2019-11-10] MEDS: METOPROLOL SUCCINATE XL 100 MG TABLET PO SCH (09:30)
[2019-11-10] MEDS: guaiFENesin/DM ER 600-30 MG TABLET PO SCH (09:30)
[2019-11-10] MEDS: CLOPIDOGREL 75 MG TABLET PO SCH (09:30)
[2019-11-10] MEDS: PANTOPRAZOLE 40 MG TABLET PO SCH (09:31)
[2019-11-10] MEDS: LOSARTAN 50 MG TABLET PO SCH (09:31)
[2019-11-10] MEDS: NYSTATIN 500,000 UNIT/5 ML UDCUP SWISH/SWAL SCH ×2 (09:31→13:35)
[2019-11-10] MEDS: INSULIN REGULAR 100 UNIT/ML SUBCUT SCH ×2 (09:48→13:35)
[2019-11-10 12:21] VITALS: BP 141/89
== END 2019-11-10 14:40 | disposition home or self-care (01) | DRG 309 ==
LOC: N.EDINP 12:03 → N.ED 12:03 → N.TELEN 16:47 → SUATTDRO 11-04 10:40
PROVIDERS: ADMIT Internal Medicine; ATTEND Internal Medicine